=== PATIENT | male | born 1930 | race Caucasian/White ===

== ENCOUNTER → 2016-10-26 | Outpatient (CLI) | payer BC ==
[~2016-10-26] MED LIST: ALPH1CAP PO; ASPEC81 PO; B-COTAB18 PO; CHOL100010 PO; CLTP PO; CYAN10005 PO; GLC5 PO; GLC500 PO; IBUP-1459 PO; OMEG10007 PO; SIMV20TA2 PO; TPRSR/25 PO
[2016-10-26 12:24] LABS: BASO % 0.5 %; BASO ABS # 0.03 K/uL (0-0.2); COMPLETE YES; EOS % 6.4 %; HEMATOCRIT 38.4 % (42-52); IG% 0.5 %; LYMPH % 37.6 %; LYMPH ABS # 2.28 K/uL (1.2-3.4); MEAN CELL VOLUME 89.1 fL (80-100); MEAN CORPUSCULAR HEMOGLOBIN 29.9 pg (25-34); MEAN CORPUSCULAR HGB CONC 33.6 g/dl (32-36); MEAN PLATELET VOLUME 11.6 fL (7.4-10.4); MONO % 8.1 %; NEUT % 46.9 %; PLATELET COUNT 168 K/uL (130-400); RED BLOOD COUNT 4.31 M/uL (4.7-6.1); WHITE BLOOD COUNT 6.06 K/uL (4.8-10.8)
[2016-10-26 12:46] LABS: ALB/GLOB RATIO 0.8 (0.9-2); ALKALINE PHOSPHATASE 77 U/L (45-117); ALT/SGPT 22 U/L (12-78); AST/SGOT 12 U/L (15-37); BLOOD UREA NITROGEN 22 mg/dl (7-18); BUN/CREATININE RATIO 14.4 (10-20); CALCIUM 9.2 mg/dl (8.5-10.1); CARBON DIOXIDE 29 mmol/L (21-32); CHLORIDE 107 mmol/L (98-107); GLUCOSE 107 mg/dl (70-99); POTASSIUM 4.2 mmol/L (3.5-5.1); SODIUM 141 mmol/L (136-145); TRIGLYCERIDES 274 mg/dl (0-150)
[2016-10-26 12:55] LABS: ESTIMATED AVERAGE GLUCOSE 174 mg/dl; HA1C FLAG Normal (Normal)
[2016-10-26 15:22] LABS: RATIO 126.7 mcg/mg (0-30.0)
== END | disposition home or self-care (01) ==
LOC: C.LAB1850 09:44
PROVIDERS: ATTEND Internal Medicine
DX: N18.3 Chronic kidney disease, stage 3 (moderate) (principal); E11.22 Type 2 diabetes mellitus with diabetic chronic kidney disease; E11.49 Type 2 diabetes mellitus with other diabetic neurological complication; D64.9 Anemia, unspecified; E55.9 Vitamin D deficiency, unspecified

== ENCOUNTER → 2016-10-30 | Outpatient (CLI) | payer BC ==
--- NOTE | 2016-11-07 07:15 | CODING QUERY MEDICAL NECESSITY ---
CQSUPPORTING DIAGNOSIS NEEDED A supporting diagnosis is required for the test/procedure performed on this patient in order for us to be reimbursed by the patient's insurance. Please provide a supporting diagnosis for the following test/procedure listed below next to the test name along with your signature. *If there is no additional diagnosis for this patient that would support the following test/procedure please document that below next to the test/procedure. Test(s)/Procedure(s) that require a supporting diagnosis: DOS 10/30/16 VITAMIN B12 TEST Provider Signature: Date: Thank you Margy Charles [facility] Information Management Once completed, please kindly fax back to [phone] For questions please call [phone]
== END | disposition home or self-care (01) ==
LOC: C.LAB1850 12:08
PROVIDERS: ATTEND Internal Medicine
DX: E11.9 Type 2 diabetes mellitus without complications (principal); N18.3 Chronic kidney disease, stage 3 (moderate); R74.8 Abnormal levels of other serum enzymes

== ENCOUNTER → 2016-12-24 | Outpatient (CLI) | payer BC ==
--- NOTE | 2016-12-24 14:52 | DIAGNOSTIC IMAGING REPORT ---
MRI OF THE BRAIN WITHOUT IV CONTRAST CLINICAL HISTORY: Cognitive impairment. COMPARISON STUDY: CT of the brain dated 06/06/2014. TECHNIQUE: MRI of the brain was performed utilizing various T1 and T2-weighted sequences in the axial, sagittal, and coronal planes. IV contrast was not administered for this examination. FINDINGS: Brain parenchyma: There are age-related involutional changes noting mild patchy subcortical and periventricular microangiopathic disease. 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 There is no hemorrhage or mass effect. There is no restricted diffusion to suggest acute ischemia. Grimm-white matter differentiation is preserved. No extra-axial fluid collection is seen. The cerebellar tonsils are normal in configuration. Ventricles, sulci, and cisterns: Prominent secondary to involutional change. Pituitary and sella: Unremarkable. Intracranial vasculature: Normal flow voids are maintained at the skull base. Orbits: The bony orbits are grossly intact. Orbital contents are normal in appearance noting bilateral ocular lens implants. Sinuses and mastoids: Trace mucosal thickening is seen within the maxillary antra. The remaining paranasal sinuses are clear. There is a right mastoid effusion. Calvarium: Unremarkable. Cervical cord: Partially visualized cervical spinal cord is normal in morphology and signal intensity. IMPRESSION: 1. 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 There is no acute intracranial abnormality. 2. Right mastoid effusion. Electronically signed by: Stefano Feng M.D. 12/24/2016 2:51 PM Dictated Date/Time: 12/24/2016 2:48 PM
== END | disposition home or self-care (01) ==
LOC: C.MRIBC 13:58
PROVIDERS: ATTEND Psychiatry & Neurology Neurology
DX: G31.84 Mild cognitive impairment of uncertain or unknown etiology (principal)

== ENCOUNTER → 2017-01-24 | Outpatient (CLI) | payer BC ==
[2017-01-24 10:05] LABS: BLOOD UREA NITROGEN 25 mg/dl (7-18); BUN/CREATININE RATIO 13.9 (10-20); CALCIUM 9.5 mg/dl (8.5-10.1); CARBON DIOXIDE 28 mmol/L (21-32); CHLORIDE 106 mmol/L (98-107); GLUCOSE 77 mg/dl (70-99); POTASSIUM 4.1 mmol/L (3.5-5.1); SODIUM 141 mmol/L (136-145)
[2017-01-24 10:31] LABS: ESTIMATED AVERAGE GLUCOSE 180 mg/dl; HA1C FLAG Normal (Normal)
== END | disposition home or self-care (01) ==
LOC: C.LAB1850 08:32
PROVIDERS: ATTEND Internal Medicine
DX: E11.49 Type 2 diabetes mellitus with other diabetic neurological complication (principal)

== ENCOUNTER → 2017-02-05 | Outpatient (CLI) | payer BC ==
--- NOTE | 2017-02-05 13:16 | DIAGNOSTIC IMAGING REPORT ---
(RENAL)RETROPERITONEA COMP HISTORY: Nephrocalcinosis N20.0 Nephrolithiasis COMPARISON: None. FINDINGS: Right kidney: No hydronephrosis. Maximum dimension 10.3 cm per 2.6 cm cyst. 7 mm nonobstructing mid pole calcification. Left kidney: No hydronephrosis. Maximum linear dimension 11.7 cm. 2 cysts measuring 2 and 3 cm respectively. No calcifications. Bladder: No bladder wall thickening. The bilateral ureteral jets were identified. IMPRESSION: Small renal cysts bilaterally. 7 mm nonobstructing right renal calcification. No evidence for hydronephrosis. The above report was generated using voice recognition software. It may contain grammatical, syntax or spelling errors. Electronically signed by: Sanjiv Montana M.D. 02/05/2017 1:15 PM Dictated Date/Time: 02/05/2017 1:13 PM
[2017-02-05 14:46] LABS: BASO % 0.8 %; BASO ABS # 0.04 K/uL (0-0.2); COMPLETE YES; EOS % 4.5 %; HEMATOCRIT 39.5 % (42-52); IG% 0.4 %; LYMPH % 31.4 %; LYMPH ABS # 1.62 K/uL (1.2-3.4); MEAN CELL VOLUME 89.8 fL (80-100); MEAN CORPUSCULAR HEMOGLOBIN 30.2 pg (25-34); MEAN CORPUSCULAR HGB CONC 33.7 g/dl (32-36); MONO % 7.8 %; NEUT % 55.1 %; PLATELET COUNT 171 K/uL (130-400); WHITE BLOOD COUNT 5.16 K/uL (4.8-10.8)
[2017-02-05 14:53] LABS: URINE APPEARANCE CLEAR (CLEAR); URINE BILIRUBIN NEG (NEG); URINE COLOR YELLOW; URINE NITRITE NEG (NEG); UROBILINOGEN NEG (NEG)
[2017-02-05 14:56] LABS: MANUAL MICROSCOPIC REQUIRED? NO; REVIEW REQ? NO
[2017-02-05 15:05] LABS: ALKALINE PHOSPHATASE 73 U/L (45-117); ALT/SGPT 23 U/L (12-78); AST/SGOT 15 U/L (15-37); BLOOD UREA NITROGEN 21 mg/dl (7-18); BUN/CREATININE RATIO 13.2 (10-20); CALCIUM 9.2 mg/dl (8.5-10.1); CARBON DIOXIDE 27 mmol/L (21-32); CHLORIDE 107 mmol/L (98-107); GLUCOSE 191 mg/dl (70-99); POTASSIUM 4.4 mmol/L (3.5-5.1); SODIUM 141 mmol/L (136-145); URIC ACID 6.9 mg/dl (2.6-7.2)
[2017-02-05 15:06] LABS: ALB/GLOB RATIO 0.8 (0.9-2)
[2017-02-05 15:29] LABS: URINE PROTIEN/CREAT RATIO 0.3 (0-0.2); URINE TOTAL PROTEIN 40.5 mg/dl (0-11.9)
== END | disposition home or self-care (01) ==
LOC: C.ULTR 12:03
PROVIDERS: ATTEND Internal Medicine Nephrology
DX: N20.0 Calculus of kidney (principal); N18.3 Chronic kidney disease, stage 3 (moderate); N28.1 Cyst of kidney, acquired

== ENCOUNTER → 2017-04-01 | Outpatient (CLI) | payer BC ==
[2017-04-01 17:56] LABS: URINE APPEARANCE CLEAR (CLEAR); URINE BILIRUBIN NEG (NEG); URINE COLOR YELLOW; URINE NITRITE NEG (NEG); URINE PH 5.5 (4.5-7.5); URINE SPECIFIC GRAVITY 1.014 (1.000-1.030); UROBILINOGEN NEG (NEG); ZZUR CULT IF INDIC CLEAN CATCH NO
[2017-04-01 17:58] LABS: MANUAL MICROSCOPIC REQUIRED? NO; REVIEW REQ? NO
[2017-04-01 18:17] LABS: URINE PROTIEN/CREAT RATIO 0.2 (0-0.2); URINE TOTAL PROTEIN 17.5 mg/dl (0-11.9)
[2017-04-01 18:18] LABS: BLOOD UREA NITROGEN 25 mg/dl (7-18); BUN/CREATININE RATIO 14.6 (10-20); CALCIUM 9.1 mg/dl (8.5-10.1); CARBON DIOXIDE 27 mmol/L (21-32); CHLORIDE 102 mmol/L (98-107); GLUCOSE 191 mg/dl (70-99); MAGNESIUM 2.2 mg/dl (1.8-2.4); PHOSPHORUS 3.2 mg/dl (2.5-4.9); POTASSIUM 4.5 mmol/L (3.5-5.1); SODIUM 135 mmol/L (136-145)
[2017-04-03 16:17] LABS: ALBUMIN 4.2 G/DL (3.8-4.8); GAMMA GLOBULIN 1.1 G/DL (0.8-1.7); TOTAL PROTEIN 7.8 G/DL (6.2-8.3)
== END | disposition home or self-care (01) ==
LOC: C.LAB1850 17:15
PROVIDERS: ATTEND Internal Medicine Nephrology
DX: N20.0 Calculus of kidney (principal); M85.80 Other specified disorders of bone density and structure, unspecified site

== ENCOUNTER → 2017-05-01 | Outpatient (CLI) | payer BC ==
[2017-05-01 12:10] LABS: BASO % 0.5 %; BASO ABS # 0.03 K/uL (0-0.2); COMPLETE YES; HEMATOCRIT 36.9 % (42-52); IG% 0.4 %; LYMPH ABS # 2.04 K/uL (1.2-3.4); MEAN CORPUSCULAR HEMOGLOBIN 30.2 pg (25-34); MEAN CORPUSCULAR HGB CONC 33.6 g/dl (32-36); MEAN PLATELET VOLUME 11.2 fL (7.4-10.4); MONO % 11.3 %; NEUT % 44.8 %; PLATELET COUNT 167 K/uL (130-400); WHITE BLOOD COUNT 5.51 K/uL (4.8-10.8)
[2017-05-01 12:35] LABS: ALT/SGPT 18 U/L (12-78); BLOOD UREA NITROGEN 25 mg/dl (7-18); BUN/CREATININE RATIO 15.7 (10-20); CALCIUM 9.1 mg/dl (8.5-10.1); CARBON DIOXIDE 23 mmol/L (21-32); CHLORIDE 107 mmol/L (98-107); GLUCOSE 121 mg/dl (70-99); POTASSIUM 4.2 mmol/L (3.5-5.1); SODIUM 138 mmol/L (136-145)
[2017-05-01 12:38] LABS: ALB/GLOB RATIO 0.8 (0.9-2); ALKALINE PHOSPHATASE 78 U/L (45-117); AST/SGOT 16 U/L (15-37); CHOLESTEROL 137 mg/dl (0-200); CHOLESTEROL/HDL RATIO 4.3; HDL CHOLESTEROL 32 mg/dl; LDL CHOLESTEROL CALCULATED 30 mg/dl; TRIGLYCERIDES 374 mg/dl (0-150); VERY LOW DENSITY LIPOPROT CALC 75 mg/dl
[2017-05-01 12:39] LABS: ESTIMATED AVERAGE GLUCOSE 157 mg/dl; HA1C FLAG Normal (Normal)
== END | disposition home or self-care (01) ==
LOC: C.LAB1850 10:21
PROVIDERS: ATTEND Internal Medicine
DX: E78.01 Familial hypercholesterolemia (principal); I10 Essential (primary) hypertension; E11.9 Type 2 diabetes mellitus without complications; E55.9 Vitamin D deficiency, unspecified; R74.8 Abnormal levels of other serum enzymes

== ENCOUNTER → 2017-06-29 | Outpatient (CLI) | payer BC ==
[2017-06-29 09:25] LABS: BLOOD UREA NITROGEN 26 mg/dl (7-18); BUN/CREATININE RATIO 14.8 (10-20); CALCIUM 9.1 mg/dl (8.5-10.1); CARBON DIOXIDE 29 mmol/L (21-32); CHLORIDE 104 mmol/L (98-107); CREATININE 1.76 mg/dl (0.60-1.40); GLUCOSE 64 mg/dl (70-99); MAGNESIUM 2.2 mg/dl (1.8-2.4); POTASSIUM 3.7 mmol/L (3.5-5.1); SODIUM 138 mmol/L (136-145)
[2017-06-29 09:26] LABS: PHOSPHORUS 3.2 mg/dl (2.5-4.9)
== END | disposition home or self-care (01) ==
LOC: C.LAB 08:23
PROVIDERS: ATTEND Internal Medicine Nephrology
DX: N18.3 Chronic kidney disease, stage 3 (moderate) (principal)

== ENCOUNTER → 2017-12-05 | Outpatient (CLI) | payer BC ==
[2017-12-05 10:25] LABS: BASO % 0.5 %; BASO ABS # 0.03 K/uL (0-0.2); EOS % 5.8 %; EOS ABS # 0.35 K/uL (0-0.5); HEMATOCRIT 38.3 % (42-52); IG# 0.02 K/uL (0.00-0.02); LYMPH % 34.2 %; LYMPH ABS # 2.07 K/uL (1.2-3.4); MEAN CELL VOLUME 88.9 fL (80-100); MEAN CORPUSCULAR HEMOGLOBIN 30.2 pg (25-34); MEAN CORPUSCULAR HGB CONC 33.9 g/dl (32-36); MEAN PLATELET VOLUME 10.5 fL (7.4-10.4); MONO % 8.6 %; MONO ABS # 0.52 K/uL (0.11-0.59); NEUT % 50.6 %; NEUT ABS # 3.07 K/uL (1.4-6.5); PLATELET COUNT 183 K/uL (130-400); RED CELL DISTRIBUTION WIDTH CV 13.3 % (11.5-14.5); WHITE BLOOD COUNT 6.06 K/uL (4.8-10.8)
[2017-12-05 10:35] LABS: ALBUMIN 3.4 gm/dl (3.4-5.0); ALT/SGPT 19 U/L (12-78); AST/SGOT 16 U/L (15-37); BLOOD UREA NITROGEN 26 mg/dl (7-18); CALCIUM 8.7 mg/dl (8.5-10.1); CARBON DIOXIDE 25 mmol/L (21-32); CREATININE 1.56 mg/dl (0.60-1.40); GLUCOSE 155 mg/dl (70-99); POTASSIUM 4.2 mmol/L (3.5-5.1); SODIUM 138 mmol/L (136-145)
[2017-12-05 11:10] LABS: HEMOGLOBIN A1C 7.8 % (4.5-5.6)
== END | disposition home or self-care (01) ==
LOC: C.LAB1850 09:20
PROVIDERS: ATTEND Internal Medicine Nephrology
DX: N18.3 Chronic kidney disease, stage 3 (moderate) (principal); E78.01 Familial hypercholesterolemia; E11.49 Type 2 diabetes mellitus with other diabetic neurological complication

== ENCOUNTER 2018-09-30 16:03 | Inpatient (IN) ==
[2018-09-30] MEDS ORDERED: SODIUM CHLORIDE 0.9% 500 ML IV SCH (16:15)
--- NOTE | 2018-09-30 16:32 | XRay Report ---
XR chest 1V portable HISTORY: weakness COMPARISON: None. FINDINGS: The heart is mildly enlarged. Calcified left hilar lymph nodes. A few linear densities the left lung base consistent with subsegmental atelectasis or scarring. The lungs are otherwise clear. N o pleural effusions. No pneumothorax. IMPRESSION: Mild cardiomegaly. Otherwise, no acute process within the chest. Electronically signed by: Timoteo Burton M.D. 09/30/2018 4:31 PM
[2018-09-30 16:52] LABS: Basophils # (auto) 0.02 K/uL (0-0.2); Basophils % (auto) 0.5 %; Eosinophils # (auto) 0.06 K/uL (0-0.5); Eosinophils % (auto) 1.4 %; Hematocrit (blood only) 37.4 % (42-52); Hemoglobin 12.7 g/dL (14.0-18.0); Immature Granulocytes # (auto) 0.01 K/uL (0.00-0.02); Immature Granulocytes % (auto) 0.2 %; Lymphocytes # (auto) 0.81 K/uL (1.2-3.4); Lymphocytes % (auto) 19.3 %; Mean Corpuscular Volume 88.8 fL (80-100); Mean Platelet Volume 11.2 fL (7.4-10.4); Monocytes # (auto) 0.58 K/uL (0.11-0.59); Monocytes % (auto) 13.8 %; Neutrophils # (auto) 2.71 K/uL (1.4-6.5); Neutrophils % (auto) 64.8 %; Platelet Count 146 K/uL (130-400); RDW Coefficient of Variation 13.2 % (11.5-14.5); Red Blood Count 4.21 M/uL (4.7-6.1); White Blood Count 4.19 K/uL (4.8-10.8)
[2018-09-30 16:54] LABS: Oxygen Saturation VBG 81.4 %; pH VBG 7.38 (7.36-7.41)
[2018-09-30 17:04] LABS: INR 1.2 (0.9-1.1); Partial Thromboplastin Ratio 1.2; Partial Thromboplastin Time 33.5 Seconds (21.0-31.0); Prothrombin Time 11.8 Seconds (9.0-12.0)
[2018-09-30 17:10] LABS: Alanine Aminotransferase 30 U/L (12-78); Albumin Level 3.3 gm/dl (3.4-5.0); Aspartate Aminotransferase 41 U/L (15-37); BUN Creatinine Ratio 22.7 (10-20); Blood Urea Nitrogen 39 mg/dl (7-18); Calcium 8.6 mg/dl (8.5-10.1); Carbon Dioxide 25 mmol/L (21-32); Chloride 102 mmol/L (98-107); Creatinine Clr Calc Pharmacy 34.3 ml/min; Est GFR (African American) 40.3; Est GFR (Non-African American) 34.7; Glucose 212 mg/dl (70-99); Potassium 3.8 mmol/L (3.5-5.1); Sodium 135 mmol/L (136-145)
[2018-09-30 17:20] LABS: Albumin Globulin Ratio 0.7 (0.9-2); Alkaline Phosphatase 70 U/L (45-117); Bilirubin,Total 0.7 mg/dl (0.2-1); Globulin 4.9 gm/dl (2.5-4.0); Total Protein 8.2 gm/dl (6.4-8.2); Troponin I < 0.015 ng/ml (0-0.045)
--- NOTE | 2018-09-30 17:27 | CT Scan Report ---
HEAD CT NONCONTRAST CT DOSE: 537.48 mGy.cm HISTORY: confusion TECHNIQUE: Multiaxial CT images of the head were performed without the use of intravenous contrast. A utomated exposure control was utilized for this study. A dose lowering technique was utilized adheri ng to the principles of ALARA. Comparison: Head CT 06/06/2014. Findings: Moderate mucosal thickening within the maxillary sinuses and ethmoid air cells. The calvari um and skull base are intact. There is no mass, hematoma, midline shift, acute infarct. White matter hypodensity is nonspecific but suggestive of microvascular ischemic change. The ventricles and sulci demonstrate mild age-related involutional changes. 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 Impression: No significant change compared to the prior study. No acute intracranial abnormality. Electronically signed by: Timoteo Burton M.D. 09/30/2018 5:26 PM
[2018-09-30 17:44] LABS: Appearance Urine Cloudy (Clear); Bacteria Urine Automated Negative (Negative); Bilirubin Urine Negative (Negative); Blood Urine 2+ (Negative); Color Urine Yellow; Epithelial Cell Urine Auto >30 /lpf (0-5); Glucose Urine UA 1+ (Negative); Ketones Urine 1+ (Negative); Leukocyte Esterase Urine Trace (Negative); Nitrite Urine Negative (Negative); Protein Urine 3+ (Negative); RBC Urine Automated 0-4 /hpf (0-4); Specific Gravity Urine 1.024 (1.000-1.030); Urobilinogen Urine Negative (Negative)
[2018-09-30] MEDS ORDERED: SODIUM CHLORIDE 0.9% 1000ML 500 ML IV ONE (18:26)
--- NOTE | 2018-09-30 19:38 | Emergency Department Note ---
Entered by Negrita Vera acting as a scribe for History of Present Illness General Chief complaint: Fall Stated complaint: CONFUSION Time Seen by Provider: 09/30/18 16:08 Source: patient, EMS and RN notes reviewed Mode of arrival: EMS Limitations: altered mental status History of Present Illness Provider complaint: confusion Onset (ago): unknown (earlier today) Location: head Pain Consistency: + other (episode) Quality: + other (confusion) Associated symptoms: + denies other symptoms (pain) Treatments prior to arrival: other (400 cc saline) The patient is an 88 year old male who presents to the Emergency Room via EMS following an episode of confusion that occurred earlier today. Per EMS, the patient was found in his underwear in the bathtub by his family. EMS notes that the family is unsure how long he was there and state that he was confused and unable to answer questions correctly. Per RN, the patient has not been diagnosed with dementia but the family reports that the patient has some good days and some bad days. The patient denies any pain anywhere. EMS notes show that the patients blood sugar was 238 and that he was given 400 cc of saline en route. The family reports that they last spoke with the patient last night and that he was coherent but had a little bit of a cold. They state that he was supposed to take a bath last evening, so they are unsure how long he was in the tub. Home Medications Home Medications Medication Instructions Recorded Confirmed Type alpha lipoic acid 300 mg PO DAILY 09/30/18 09/30/18 History aspirin [Aspir-81] 81 mg PO DAILY 09/30/18 09/30/18 History calcium carbonate-vitamin D3 1 cap PO DAILY 09/30/18 09/30/18 History [Calcium 600 + D(3)] cholecalciferol (vitamin D3) 1,000 unit PO DAILY 09/30/18 09/30/18 History [Vitamin D3] glimepiride 4 mg PO BID 09/30/18 09/30/18 History metoprolol succinate 25 mg PO DAILY 09/30/18 09/30/18 History omega 6-rmx-vuy-fish oil [Fish Oil] 0 mg PO BID 09/30/18 09/30/18 History simvastatin 20 mg PO DAILY 09/30/18 09/30/18 History thiamine HCl (vitamin B1) [Vitamin 100 mg PO DAILY 09/30/18 09/30/18 History B-1] vitamin B complex 100 2-herbs 1 tab PO DAILY 09/30/18 09/30/18 History Allergies Allergy/AdvReac Type Severity Reaction Status Date / Time REDD Inhibitors Allergy Severe swelling Verified 09/30/18 19:48 of face, lips, etc. pneumococcal vaccine Allergy Mild ARM SWELLED Verified 09/30/18 19:48 losartan Allergy Unknown unknown Verified 09/30/18 19:48 Past Med/Surg History Medical History Diabetes (Chronic) Heart disease (Chronic) Family History Father Heart attack Other Family history non-contributory Social History Preferred Language: Guamanian Communication Ability: Effective Drug And Alcohol Treatment Specialist Required: No Beliefs That Will Affect Care: None Current Living Situation: Alone Other Information That Helps Us Care for You: No Feels Safe at Home: Yes Safety Concerns: Feels Safe At This Time Smoking Status: Never smoker Hx Alcohol Use: No Hx Substance Use: No Review of Systems Other (HPI and ROS are both limited secondary to confusion. ) Physical Exam Vital Signs Vital Signs - 24 hr 09/30/18 16:16 09/30/18 16:22 09/30/18 16:30 Temperature 36.5 C Temperature Source Oral Sepsis Recent Fever Within 48 Hours No Sepsis Action Taken by Nursing No Action Required Pulse Rate 113 H 111 H 107 H Pulse Rate [Apical] Pulse Rate from SpO2 Sensor 110 H 107 H Pulse Rhythm [Apical] Pulse Strength [Apical] Respiratory Rate 20 20 22 Respiratory Effort / Characteristics Non-Labored Respiratory Depth Normal Respiratory Pattern Blood Pressure 183/94 H Blood Pressure [Right Arm] Blood Pressure Mean 123 Blood Pressure Mean [Right Arm] Blood Pressure Position [Right Arm] Pulse Oximetry 95 92 97 Oxygen Delivery Method Room Air 09/30/18 16:40 09/30/18 16:48 09/30/18 16:50 Temperature Temperature Source Sepsis Recent Fever Within 48 Hours Sepsis Action Taken by Nursing Pulse Rate 106 H 109 H Pulse Rate [Apical] Pulse Rate from SpO2 Sensor 105 H 106 H Pulse Rhythm [Apical] Pulse Strength [Apical] Respiratory Rate 19 21 Respiratory Effort / Characteristics Respiratory Depth Respiratory Pattern Blood Pressure Blood Pressure [Right Arm] Blood Pressure Mean Blood Pressure Mean [Right Arm] Blood Pressure Position [Right Arm] Pulse Oximetry 95 95 94 Oxygen Delivery Method Room Air 09/30/18 17:00 09/30/18 17:24 09/30/18 17:26 Temperature Temperature Source Sepsis Recent Fever Within 48 Hours Sepsis Action Taken by Nursing Pulse Rate 105 H 117 H 110 H Pulse Rate [Apical] Pulse Rate from SpO2 Sensor 107 H 110 H Pulse Rhythm [Apical] Pulse Strength [Apical] Respiratory Rate 25 H 24 Respiratory Effort / Characteristics Respiratory Depth Respiratory Pattern Blood Pressure 167/100 H Blood Pressure [Right Arm] Blood Pressure Mean 122 Blood Pressure Mean [Right Arm] Blood Pressure Position [Right Arm] Pulse Oximetry 96 94 Oxygen Delivery Method 09/30/18 17:30 09/30/18 17:40 09/30/18 17:50 Temperature Temperature Source Sepsis Recent Fever Within 48 Hours Sepsis Action Taken by Nursing Pulse Rate 103 H 104 H 103 H Pulse Rate [Apical] Pulse Rate from SpO2 Sensor 102 H 105 H 104 H Pulse Rhythm [Apical] Pulse Strength [Apical] Respiratory Rate 23 18 26 H Respiratory Effort / Characteristics Respiratory Depth Respiratory Pattern Blood Pressure 151/84 H Blood Pressure [Right Arm] Blood Pressure Mean 106 Blood Pressure Mean [Right Arm] Blood Pressure Position [Right Arm] Pulse Oximetry 94 94 94 Oxygen Delivery Method 09/30/18 18:00 09/30/18 18:01 09/30/18 18:10 Temperature Temperature Source Sepsis Recent Fever Within 48 Hours Sepsis Action Taken by Nursing Pulse Rate 106 H 105 H 104 H Pulse Rate [Apical] 105 H Pulse Rate from SpO2 Sensor 103 H 104 H 102 H Pulse Rhythm [Apical] Pulse Strength [Apical] Respiratory Rate 29 H 29 H 25 H Respiratory Effort / Characteristics Non-Labored Respiratory Depth Normal Respiratory Pattern Blood Pressure 166/77 H Blood Pressure [Right Arm] 151/84 H Blood Pressure Mean 106 Blood Pressure Mean [Right Arm] 106 Blood Pressure Position [Right Arm] Pulse Oximetry 92 93 93 Oxygen Delivery Method Room Air 09/30/18 18:20 09/30/18 18:30 09/30/18 18:40 Temperature Temperature Source Sepsis Recent Fever Within 48 Hours Sepsis Action Taken by Nursing Pulse Rate 101 H 103 H 101 H Pulse Rate [Apical] Pulse Rate from SpO2 Sensor 103 H 104 H 101 H Pulse Rhythm [Apical] Pulse Strength [Apical] Respiratory Rate 22 24 21 Respiratory Effort / Characteristics Respiratory Depth Respiratory Pattern Blood Pressure 156/79 H Blood Pressure [Right Arm] Blood Pressure Mean 104 Blood Pressure Mean [Right Arm] Blood Pressure Position [Right Arm] Pulse Oximetry 95 98 98 Oxygen Delivery Method 09/30/18 18:50 09/30/18 19:00 09/30/18 19:10 Temperature Temperature Source Sepsis Recent Fever Within 48 Hours Sepsis Action Taken by Nursing Pulse Rate 101 H 110 H 104 H Pulse Rate [Apical] Pulse Rate from SpO2 Sensor 102 H Pulse Rhythm [Apical] Pulse Strength [Apical] Respiratory Rate 27 H 26 H 21 Respiratory Effort / Characteristics Respiratory Depth Respiratory Pattern Blood Pressure 161/83 H Blood Pressure [Right Arm] Blood Pressure Mean 109 Blood Pressure Mean [Right Arm] Blood Pressure Position [Right Arm] Pulse Oximetry 97 Oxygen Delivery Method 09/30/18 19:20 09/30/18 19:30 09/30/18 19:40 Temperature Temperature Source Sepsis Recent Fever Within 48 Hours Sepsis Action Taken by Nursing Pulse Rate 108 H 109 H 110 H Pulse Rate [Apical] Pulse Rate from SpO2 Sensor Pulse Rhythm [Apical] Pulse Strength [Apical] Respiratory Rate 24 27 H 21 Respiratory Effort / Characteristics Respiratory Depth Respiratory Pattern Blood Pressure 156/86 H Blood Pressure [Right Arm] Blood Pressure Mean 109 Blood Pressure Mean [Right Arm] Blood Pressure Position [Right Arm] Pulse Oximetry Oxygen Delivery Method 09/30/18 19:50 09/30/18 20:00 09/30/18 20:10 Temperature Temperature Source Sepsis Recent Fever Within 48 Hours Sepsis Action Taken by Nursing Pulse Rate 112 H 107 H 108 H Pulse Rate [Apical] Pulse Rate from SpO2 Sensor 108 H Pulse Rhythm [Apical] Pulse Strength [Apical] Respiratory Rate 22 24 23 Respiratory Effort / Characteristics Respiratory Depth Respiratory Pattern Blood Pressure 130/77 Blood Pressure [Right Arm] Blood Pressure Mean 94 Blood Pressure Mean [Right Arm] Blood Pressure Position [Right Arm] Pulse Oximetry 92 Oxygen Delivery Method 09/30/18 20:20 09/30/18 20:30 09/30/18 20:40 Temperature Temperature Source Sepsis Recent Fever Within 48 Hours Sepsis Action Taken by Nursing Pulse Rate 103 H 99 H 107 H Pulse Rate [Apical] Pulse Rate from SpO2 Sensor 104 H 100 H 106 H Pulse Rhythm [Apical] Pulse Strength [Apical] Respiratory Rate 21 26 H 14 Respiratory Effort / Characteristics Respiratory Depth Respiratory Pattern Blood Pressure 132/72 Blood Pressure [Right Arm] Blood Pressure Mean 92 Blood Pressure Mean [Right Arm] Blood Pressure Position [Right Arm] Pulse Oximetry 96 96 91 Oxygen Delivery Method 09/30/18 22:12 09/30/18 22:13 09/30/18 22:26 Temperature 36.8 C Temperature Source Oral Sepsis Recent Fever Within 48 Hours Sepsis Action Taken by Nursing Pulse Rate 104 H Pulse Rate [Apical] 106 H Pulse Rate from SpO2 Sensor Pulse Rhythm [Apical] Regular Pulse Strength [Apical] Normal Respiratory Rate 18 Respiratory Effort / Characteristics Non-Labored Spontaneous Non-Labored Spontaneous Respiratory Depth Normal Normal Respiratory Pattern Regular Regular Blood Pressure Blood Pressure [Right Arm] 157/81 H Blood Pressure Mean Blood Pressure Mean [Right Arm] 106 Blood Pressure Position [Right Arm] Sitting Pulse Oximetry 94 Oxygen Delivery Method Room Air Room Air 09/30/18 23:05 Temperature 36.9 C Temperature Source Oral Sepsis Recent Fever Within 48 Hours Sepsis Action Taken by Nursing Pulse Rate Pulse Rate [Apical] 109 H Pulse Rate from SpO2 Sensor Pulse Rhythm [Apical] Pulse Strength [Apical] Respiratory Rate 18 Respiratory Effort / Characteristics Respiratory Depth Respiratory Pattern Blood Pressure Blood Pressure [Right Arm] 171/82 H Blood Pressure Mean Blood Pressure Mean [Right Arm] 111 Blood Pressure Position [Right Arm] Pulse Oximetry 92 Oxygen Delivery Method Room Air GENERAL: Patient is in no acute distress. HEENT: No acute trauma, normocephalic atraumatic, mucous membranes moist, no nasal congestion, no scleral icterus. NECK: No stridor, no adenopathy, no meningismus, trachea is midline. LUNGS: Clear to auscultation bilaterally, no wheeze, no rhonchi, breath sounds equal. HEART: Tachycardic with a regular rhythm, no murmurs. ABDOMEN: Soft, nontender, bowel sounds positive, no hernias, no peritonitis. EXTREMITIES: No edema, subtle abrasions to both posterior elbows, full ROM of all joints without pain or difficulty. NEUROLOGIC: Awake and alert. Confusion noted. Does not remember this morning, does not know this hospital. Moves all extremities equally. No speech slur. SKIN: No rash, no jaundice, no diaphoresis. Course 161: Past medical records reviewed. The patient was evaluated in room C10, and a complete history and physical examination were performed. 1841: I reviewed the patient's case with Dr. Mart Chamorro Hospitalist. S he will evaluate the patient for further management. Administered Medications Fish Oil ([place]-3 (Purified Fish Oil)) 2 gm PO BID ALISA Stop: 10/30/18 20:59 Last Admin: 09/30/18 22:47 Dose: 2 gm Documented by: [id number] Heparin Sodium (Porcine) (Heparin Sodium (Porcine)) 5,000 units SQ Q8 ALISA Stop: 10/30/18 21:59 Last Admin: 10/01/18 00:12 Dose: 5,000 units Documented by: [id number] Cosigned by: [id number] Insulin Aspart (Novolog Flexpen) 0 units SC ACHS ALISA Stop: 10/30/18 21:54 Last Admin: 09/30/18 22:50 Dose: 2 units Documented by: [id number] Cosigned by: [id number] Discontinued Medications Sodium Chloride (Nss) 500 mls @ 999 mls/hr IV .Q31M ALISA Stop: 09/30/18 16:45 Last Infusion: 09/30/18 17:59 Dose: 0 mls/hr Documented by: [id number] Admin: 09/30/18 16:49 Dose: 999 mls/hr Documented by: [id number] Sodium Chloride (Nss 1000ml) 500 mls @ 999 mls/hr IV .Q31M ONE Stop: 09/30/18 18:56 Last Infusion: 09/30/18 19:04 Dose: 0 mls/hr Documented by: [id number] Admin: 09/30/18 18:37 Dose: 999 mls/hr Documented by: [id number] Menthol (Nice) Confirm Administered Dose 24 kelly BUCCAL .STK-MED ONE Stop: 09/30/18 22:43 Last Admin: 09/30/18 22:47 Dose: 24 kelly Documented by: [id number] Medical Decision Making Differential Diagnosis Differential Diagnosis includes: stroke, intracranial bleeding, infection, dehydration, electrolyte imbalance, anemia, renal or liver failure, UTI and dementia. Medical Records Attestation: I reviewed the patient's medical records. Home Medications Current Medication List: was personally reviewed by me Laboratory Data Attestation: I reviewed the patient's lab results. Result diagrams: 09/30/18 16:37 09/30/18 16:37 Lab Results 09/30/18 09/30/18 09/30/18 Range/Units 16:37 16:37 16:37 WBC 4.19 L (4.8-10.8) K/uL RBC 4.21 L (4.7-6.1) M/uL Hgb 12.7 L (14.0-18.0) g/dL Hct 37.4 L (42-52) % MCV 88.8 (80-100) fL MCH 30.2 (25-34) pg MCHC 34.0 (32-36) g/dL RDW Std Deviation 43.0 (36.4-46.3) fL RDW Coeff of April 13.2 (11.5-14.5) % Plt Count 146 (130-400) K/uL MPV 11.2 H (7.4-10.4) fL Immature Gran % (Auto) 0.2 % Neut % (Auto) 64.8 % Lymph % (Auto) 19.3 % [place] % (Auto) 13.8 % Eos % (Auto) 1.4 % Baso % (Auto) 0.5 % Immature Gran # (Auto) 0.01 (0.00-0.02) K/uL Neut # (Auto) 2.71 (1.4-6.5) K/uL Lymph # (Auto) 0.81 L (1.2-3.4) K/uL [place] # (Auto) 0.58 (0.11-0.59) K/uL Eos # (Auto) 0.06 (0-0.5) K/uL Baso # (Auto) 0.02 (0-0.2) K/uL PT 11.8 (9.0-12.0) Seconds INR 1.2 H (0.9-1.1) APTT 33.5 H (21.0-31.0) Seconds PTT Ratio 1.2 VBG pH (7.36-7.41) VBG pCO2 (38-50) mmHg VBG pO2 mmHg VBG HCO3 mmol/L VBG O2 Saturation % VBG Base Excess mEq/L Barometric Pressure mm/Hg Sodium 135 L (136-145) mmol/L Potassium 3.8 (3.5-5.1) mmol/L Chloride 102 (98-107) mmol/L Carbon Dioxide 25 (21-32) mmol/L Anion Gap 8.0 (3-11) BUN 39 H (7-18) mg/dl Creatinine 1.73 H (0.6-1.4) mg/dl Est Cr Clr Drug Dosing 34.3 ml/min Est GFR ( Amer) 40.3 Est GFR (Non-Af Amer) 34.7 BUN/Creatinine Ratio 22.7 H (10-20) Glucose 212 H (70-99) mg/dl POC Glucose (70-99) Lactate (0.4-2.0) mmol/L Calcium 8.6 (8.5-10.1) mg/dl Magnesium 2.0 (1.8-2.4) mg/dl Total Bilirubin 0.7 (0.2-1) mg/dl AST 41 H (15-37) U/L ALT 30 (12-78) U/L Alkaline Phosphatase 70 (45-117) U/L Ammonia (11-32) umol/L Troponin I < 0.015 (0-0.045) ng/ml Total Protein 8.2 (6.4-8.2) gm/dl Albumin 3.3 L (3.4-5.0) gm/dl Globulin 4.9 H (2.5-4.0) gm/dl Albumin/Globulin Ratio 0.7 L (0.9-2) TSH 1.100 (0.300-4.500) uIu/ml Urine Color Urine Appearance (Clear) Urine pH (4.5-7.5) Ur Specific [place] (1.000-1.030) Urine Protein (Negative) Urine Glucose (UA) (Negative) Urine Ketones (Negative) Urine Blood (Negative) Urine Nitrite (Negative) Urine Bilirubin (Negative) Urine Urobilinogen (Negative) Ur Leukocyte Esterase (Negative) Urine WBC (Auto) (0-5) /hpf Urine RBC (Auto) (0-4) /hpf U Hyaline Cast (Auto) (0-5) /lpf U Epithel Cells (Auto) (0-5) /lpf Urine Bacteria (Auto) (Negative) Ur Renal Epithelial Cell Granular Casts (0) /lpf Urine Yeast 09/30/18 09/30/18 09/30/18 Range/Units 16:37 16:37 16:37 WBC (4.8-10.8) K/uL RBC (4.7-6.1) M/uL Hgb (14.0-18.0) g/dL Hct (42-52) % MCV (80-100) fL MCH (25-34) pg MCHC (32-36) g/dL RDW Std Deviation (36.4-46.3) fL RDW Coeff of April (11.5-14.5) % Plt Count (130-400) K/uL MPV (7.4-10.4) fL Immature Gran % (Auto) % Neut % (Auto) % Lymph % (Auto) % [place] % (Auto) % Eos % (Auto) % Baso % (Auto) % Immature Gran # (Auto) (0.00-0.02) K/uL Neut # (Auto) (1.4-6.5) K/uL Lymph # (Auto) (1.2-3.4) K/uL [place] # (Auto) (0.11-0.59) K/uL Eos # (Auto) (0-0.5) K/uL Baso # (Auto) (0-0.2) K/uL PT (9.0-12.0) Seconds INR (0.9-1.1) APTT (21.0-31.0) Seconds PTT Ratio VBG pH 7.38 (7.36-7.41) VBG pCO2 42 (38-50) mmHg VBG pO2 68 mmHg VBG HCO3 24 mmol/L VBG O2 Saturation 81.4 % VBG Base Excess -1.0 mEq/L Barometric Pressure 737.7 mm/Hg Sodium (136-145) mmol/L Potassium (3.5-5.1) mmol/L Chloride (98-107) mmol/L Carbon Dioxide (21-32) mmol/L Anion Gap (3-11) BUN (7-18) mg/dl Creatinine (0.6-1.4) mg/dl Est Cr Clr Drug Dosing ml/min Est GFR ( Amer) Est GFR (Non-Af Amer) BUN/Creatinine Ratio (10-20) Glucose (70-99) mg/dl POC Glucose (70-99) Lactate 1.6 (0.4-2.0) mmol/L Calcium (8.5-10.1) mg/dl Magnesium (1.8-2.4) mg/dl Total Bilirubin (0.2-1) mg/dl AST (15-37) U/L ALT (12-78) U/L Alkaline Phosphatase (45-117) U/L Ammonia 12.0 (11-32) umol/L Troponin I (0-0.045) ng/ml Total Protein (6.4-8.2) gm/dl Albumin (3.4-5.0) gm/dl Globulin (2.5-4.0) gm/dl Albumin/Globulin Ratio (0.9-2) TSH (0.300-4.500) uIu/ml Urine Color Urine Appearance (Clear) Urine pH (4.5-7.5) Ur Specific [place] (1.000-1.030) Urine Protein (Negative) Urine Glucose (UA) (Negative) Urine Ketones (Negative) Urine Blood (Negative) Urine Nitrite (Negative) Urine Bilirubin (Negative) Urine Urobilinogen (Negative) Ur Leukocyte Esterase (Negative) Urine WBC (Auto) (0-5) /hpf Urine RBC (Auto) (0-4) /hpf U Hyaline Cast (Auto) (0-5) /lpf U Epithel Cells (Auto) (0-5) /lpf Urine Bacteria (Auto) (Negative) Ur Renal Epithelial Cell Granular Casts (0) /lpf Urine Yeast 09/30/18 09/30/18 Range/Units 17:27 22:18 WBC (4.8-10.8) K/uL RBC (4.7-6.1) M/uL Hgb (14.0-18.0) g/dL Hct (42-52) % MCV (80-100) fL MCH (25-34) pg MCHC (32-36) g/dL RDW Std Deviation (36.4-46.3) fL RDW Coeff of April (11.5-14.5) % Plt Count (130-400) K/uL MPV (7.4-10.4) fL Immature Gran % (Auto) % Neut % (Auto) % Lymph % (Auto) % [place] % (Auto) % Eos % (Auto) % Baso % (Auto) % Immature Gran # (Auto) (0.00-0.02) K/uL Neut # (Auto) (1.4-6.5) K/uL Lymph # (Auto) (1.2-3.4) K/uL [place] # (Auto) (0.11-0.59) K/uL Eos # (Auto) (0-0.5) K/uL Baso # (Auto) (0-0.2) K/uL PT (9.0-12.0) Seconds INR (0.9-1.1) APTT (21.0-31.0) Seconds PTT Ratio VBG pH (7.36-7.41) VBG pCO2 (38-50) mmHg VBG pO2 mmHg VBG HCO3 mmol/L VBG O2 Saturation % VBG Base Excess mEq/L Barometric Pressure mm/Hg Sodium (136-145) mmol/L Potassium (3.5-5.1) mmol/L Chloride (98-107) mmol/L Carbon Dioxide (21-32) mmol/L Anion Gap (3-11) BUN (7-18) mg/dl Creatinine (0.6-1.4) mg/dl Est Cr Clr Drug Dosing ml/min Est GFR ( Amer) Est GFR (Non-Af Amer) BUN/Creatinine Ratio (10-20) Glucose (70-99) mg/dl POC Glucose 196 H (70-99) Lactate (0.4-2.0) mmol/L Calcium (8.5-10.1) mg/dl Magnesium (1.8-2.4) mg/dl Total Bilirubin (0.2-1) mg/dl AST (15-37) U/L ALT (12-78) U/L Alkaline Phosphatase (45-117) U/L Ammonia (11-32) umol/L Troponin I (0-0.045) ng/ml Total Protein (6.4-8.2) gm/dl Albumin (3.4-5.0) gm/dl Globulin (2.5-4.0) gm/dl Albumin/Globulin Ratio (0.9-2) TSH (0.300-4.500) uIu/ml Urine Color Yellow Urine Appearance Cloudy H (Clear) Urine pH 5.0 (4.5-7.5) Ur Specific [place] 1.024 (1.000-1.030) Urine Protein 3+ H (Negative) Urine Glucose (UA) 1+ H (Negative) Urine Ketones 1+ H (Negative) Urine Blood 2+ H (Negative) Urine Nitrite Negative (Negative) Urine Bilirubin Negative (Negative) Urine Urobilinogen Negative (Negative) Ur Leukocyte Esterase Trace H (Negative) Urine WBC (Auto) 10-30 H (0-5) /hpf Urine RBC (Auto) 0-4 (0-4) /hpf U Hyaline Cast (Auto) 5-10 H (0-5) /lpf U Epithel Cells (Auto) >30 H (0-5) /lpf Urine Bacteria (Auto) Negative (Negative) Ur Renal Epithelial Cell Not Reportable Granular Casts 5-10 H (0) /lpf Urine Yeast Not Reportable Imaging Data Radiologist's Impression: Radiology results as stated below per my review and the radiologist's interpretation: XR chest 1V portable HISTORY: weakness COMPARISON: None. FINDINGS: The heart is mildly enlarged. Calcified left hilar lymph nodes. A few linear densities the left lung base consistent with subsegmental atelectasis or scarring. The lungs are otherwise clear. No pleural effusions. No pneumothorax. IMPRESSION: Mild cardiomegaly. Otherwise, no acute process within the chest. Electronically signed by: Timoteo Burton M.D. 09/30/2018 4:[address]AST CT DOSE: 537.48 mGy.cm HISTORY: confusion TECHNIQUE: Multiaxial CT images of the head were performed without the use of intravenous contrast. Automated exposure control was utilized for this study. A dose lowering technique was utilized adhering to the principles of ALARA. Comparison: Head CT 06/06/2014. Findings: Moderate mucosal thickening within the maxillary sinuses and ethmoid air cells. The calvarium and skull base are intact. There is no mass, hematoma, midline shift, acute infarct. White matter hypodensity is nonspecific but sug gestive of microvascular ischemic change. The ventricles and sulci demonstrate mild age-related involutional changes. 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 Impression: No significant change compared to the prior study. No acute intracranial abnormality. Electronically signed by: Timoteo Burton M.D. 09/30/2018 5:26 PM ECG Data Attestation: I personally reviewed and interpreted this ECG as follows: Indication: tachycardia Rate (beats per minute): 110 Rhythm: sinus tachycardia Findings: no PVC and no ST elevation Blood Pressure Blood Pressure Findings: Elevated blood pressure Blood Pressure Disposition: further management by hospitalist [facility] Narrative There is no leukocytosis. The patient is anemic but this is baseline looking back at previous testing. No concerning coagulopathy. VBG does not show acidosis or CO2 retention. Renal panel testing show some renal insufficiency which is baseline looking back at previous testing. Lactic acid level was not significantly elevated making severe sepsis less likely. There was no hepatitis. Ammonia level was not elevated. The patient appeared to be in a euthyroid state. EKG shows a sinus tachycardia, no acute ischemia. Cardiac enzyme testing x1 is not consistent with acute cardiac injury. Urinalysis shows some contamination and dehydration, no evidence for true infection. Chest film does not show pneumonia or CHF. Brain CT shows no acute bleed or mass-effect. On exam, the patient appeared dehydrated, he was slightly tachycardic. He was awake and interactive and moving all extremities. The patient received IV saline, he received a second IV saline bolus. The patient has been resting comfortably. His heart rate does seem improved. His family thinks his mentation is improving since the IV fluids. The patient deserves a hospital stay. Presents with confusion and weakness. He may have been in his bathtub all day. He does not know why he was in the tub and does not really recall this morning's events. According to his family, he has had a slight cough but otherwise has been himself, he was acting normally last evening. Further workup in the hospital is required. I spoke to the patient and case management. The on-call hospitalist was consulted. Impression & Plan Change in mental status, Dehydration, Tachycardia, Confusion Discharge Plan Visit Data *Final* Discharge Date/Time: 09/30/18 20:54 Chief Complaint: Fall Stated Complaint: CONFUSION ED Provider: Stefano Woods Discharge Problem: Change in mental status, Dehydration, Tachycardia, Confusion Patient Disposition: Admitted As Inpatient Discharge Instructions Interventions: ED Discharge Assessment Last Done: 09/30/18 20:54 Discharge Problem: Change in mental status Qualifiers: Altered mental status type: unspecified Qualified Code(s): R41.82 - Altered mental status, unspecified The talibe's documentation has been prepared under my direction and personally reviewed by me in its entirety. I confirm that the note above accurately refl ects all work, treatment, procedures, and medical decision making performed by me.
--- NOTE | 2018-09-30 20:19 | History & Physical Report ---
Date of Service September 30, 2018 Assessment & Plan (1) Change in mental status: Uncertain etiology, likely dehydration in the setting of possible viral syndrome Improving on IVF, no abx given in the ED UA with neg nitrites and tr leuk est, WBC WNL, and neg for urinary sx--will await cx and hold abx for now given pt is improving on IVF CXR neg for PNA CT head: neg for acute electrolyes WNL TSH WNL Stroke is unlikely, will hold on neuro c/s Son states they may need some help on d/c as pt lives alone, PT/OT pending (2) Dehydration: Likely related to viral illness and dry weather Cr 1.7 Monitor s/p 1L IVF in the ED, may need further hydration but will hold for now to avoid fluid overload (3) Diabetes: SSI PRN Holding PO meds (4) HTN (hypertension): continue home meds (5) DVT prophylaxis: Heparin for DVT proph History of Present Illness Primary Care Provider: Eliezer Knox MD 88 y/o M who was brought here after being found at home with AMS. Pt is uncertain why he is in the ED. He states he feels fine at present. Pt denies fever, SOB, chest pain, abd pain, n/v/c/d, LE pain or swelling. He remembers coming here in the ambulance, but he does not remember the events leading up to this. Pt's son states that his sister (pt's daughter) spoke with pt yesterday afternoon and he was fine. Another of the pt's sons spoke with him later in the evening and pt stated he was going to take a bath before bed. Son who is with pt now states that he tried to call pt around 2p and there was no answer to either home or cell phones. He called his sister who went to the pt's home and found pt lying in the bathtub in his underwear. There was no water drawn. Pt was unable to get out of the bathtub due to being too weak. He could not tell them what had happened. Son came over and they were unable to get him out of the bathtub so they called EMS. Son states that pt occasionally forgets "little things", but this is the first large chunk of missing time that they are aware of. Pt lives alone and has done so since his passed about 9 years ago. Pt is an avid [employer] fan, but he missed the game on Saturday due to feeling unwell. Another sister had been in town from [place] last week and she had some sort of nonspecific "cold". They thought pt had the same and so he gave his tickets to another daughter to stay home and rest. Pt remembers this episode. Pt denies fever, SOB, chest pain, abd pain, n/v/c/d, LE pain or swelling. Denies urinary sx. Allergies Allergy/AdvReac Type Severity Reaction Status Date / Time REDD Inhibitors Allergy Severe swelling Verified 09/30/18 19:48 of face, lips, etc. pneumococcal vaccine Allergy Mild ARM SWELLED Verified 09/30/18 19:48 losartan Allergy Unknown unknown Verified 09/30/18 19:48 Home Medications Home Medications Medication Instructions Recorded Confirmed Type alpha lipoic acid 300 mg PO DAILY 09/30/18 09/30/18 History aspirin [Aspir-81] 81 mg PO DAILY 09/30/18 09/30/18 History calcium carbonate-vitamin D3 1 cap PO DAILY 09/30/18 09/30/18 History [Calcium 600 + D(3)] cholecalciferol (vitamin D3) 1,000 unit PO DAILY 09/30/18 09/30/18 History [Vitamin D3] glimepiride 4 mg PO BID 09/30/18 09/30/18 History metoprolol succinate 25 mg PO DAILY 09/30/18 09/30/18 History omega [id number] oil [Fish Oil] 0 mg PO BID 09/30/18 09/30/18 History simvastatin 20 mg PO DAILY 09/30/18 09/30/18 History thiamine HCl (vitamin B1) [Vitamin 100 mg PO DAILY 09/30/18 09/30/18 History B-1] vitamin B complex 100 2-herbs 1 tab PO DAILY 09/30/18 09/30/18 History Past Med/Surg History Medical History Diabetes (Chronic) Heart disease (Chronic) Family History Father Heart attack Other Family history non-contributory Social History Current Living Situation: Alone Feels Safe at Home: Yes Smoking Status: Never smoker Hx Alcohol Use: No Hx Substance Use: No Review of Systems Pertinent positives and negatives reviewed in HPI--all others negative Physical Exam Vital Signs (Past 24 Hours): Last Vital Signs Temp 36.5 C 09/30/18 16:16 Pulse 105 H 09/30/18 18:00 Resp 20 09/30/18 18:00 BP 151/84 H 09/30/18 18:00 Pulse Ox 95 09/30/18 18:00 Constitutional: WD/WN, vitals as above Eyes: normal visual mar by confrontation and + anicteric sclerae Neck: normal visual inspection and trachea midline Respiratory: normal respiratory effort, lungs clear to auscultation Cardiovascular: Rate/Rhythm: regular rate and regular rhythm Gastrointestinal (Abdomen): Inspection/Auscultation: abdomen not distended Percussion/Palpation: abdomen soft; abdomen nontender Musculoskeletal: Head/Neck/Chest: normocephalic and head atraumatic negative for edema, peripheral pulses intact Skin: no rashes, warm and dry Neurologic: awake; not confused Speech / Cognition: normal speech 5/5 sagger soak strength b/l 5/5 L LE strength in flexion against resistance from the hip, however R is 4/5 5/5 plantar/dorsi flexion against resistance Psychiatric: A+Ox3, euthymic affect Cognition: remote memory grossly intact and attention grossly intact Pt is alert to month and year. Becomes tearful when discussing the of his and smiles when discussing how they met and their marriage Results & Data Diagnostic Findings CXR: neg for acute CT head: neg for acute ECG Indication: tachycardia Code Status & VTE Plan Code Status Full code VTE Prophylaxis Plan VTE Prophylaxis will be ordered: Yes (1) Change in mental status Altered mental status type: unspecified Qualified Code(s): R41.82 - Altered mental status, unspecified
[2018-09-30] MEDS ORDERED: GLUCOSE 10 TABS/TUBE PO PRN (21:55)
[2018-09-30] MEDS ORDERED: GLUCOSE 40% GEL 15 GM TUBE PO PRN (21:55)
[2018-09-30] MEDS ORDERED: ACETAMINOPHEN 325 MG TAB PO PRN (21:55)
[2018-09-30] MEDS ORDERED: DEXTROSE 50% 50 ML SYRINGE IV PRN (21:55)
[2018-09-30] MEDS ORDERED: PHARMACIST DISCHARGE MED REC CONSULT PRN (21:55)
[2018-09-30] MEDS ORDERED: MAGNESIUM HYDROXIDE SUSP 30 ML UDC PO PRN (21:55)
[2018-09-30] MEDS ORDERED: CARBOHYDRATES FOR HYPOGLYCEMIA PO PRN (21:55)
[2018-09-30] MEDS ORDERED: ONDANSETRON INJ 2 MG/ML 2 ML VIAL IV PRN (21:55)
[2018-09-30] MEDS ORDERED: GLUCAGON FOR INJ 1 MG VIAL SQ PRN (21:55)
[2018-09-30] MEDS ORDERED: COUGH DROP (SUGAR FREE) LOZ 24 LOZ/1 BOX BUCCAL ONE (22:42)
[2018-09-30] MEDS: OMEGA-3 (PURIFIED FISH OIL) 1 GM CAP PO SCH (22:47)
[2018-09-30] MEDS: INSULIN ASPART 100 UNITS/ML 3 ML PEN SC SCH (22:50)
[2018-10-01] MEDS: HEPARIN SOD 5,000 UNIT/0.5 ML VIAL SQ SCH ×4 (00:12→20:54)
[2018-10-01 06:00] LABS: Basophils # (auto) 0.02 K/uL (0-0.2); Basophils % (auto) 0.5 %; Eosinophils # (auto) 0.18 K/uL (0-0.5); Eosinophils % (auto) 4.2 %; Hematocrit (blood only) 34.1 % (42-52); Hemoglobin 11.6 g/dL (14.0-18.0); Immature Granulocytes # (auto) 0.01 K/uL (0.00-0.02); Immature Granulocytes % (auto) 0.2 %; Lymphocytes # (auto) 0.96 K/uL (1.2-3.4); Lymphocytes % (auto) 22.6 %; Mean Corpuscular Volume 88.8 fL (80-100); Mean Platelet Volume 10.8 fL (7.4-10.4); Monocytes # (auto) 0.66 K/uL (0.11-0.59); Monocytes % (auto) 15.6 %; Neutrophils # (auto) 2.41 K/uL (1.4-6.5); Neutrophils % (auto) 56.9 %; Platelet Count 132 K/uL (130-400); RDW Coefficient of Variation 13.2 % (11.5-14.5); RDW Standard Deviation 42.9 fL (36.4-46.3); Red Blood Count 3.84 M/uL (4.7-6.1); White Blood Count 4.24 K/uL (4.8-10.8)
[2018-10-01 06:30] LABS: BUN Creatinine Ratio 23.8 (10-20); Est GFR (Non-African American) 42.3; Potassium 3.7 mmol/L (3.5-5.1)
[2018-10-01 06:35] LABS: Estimated Average Glucose 212 mg/dl
[2018-10-01] MEDS: CHOLECALCIFEROL 1,000 UNITS TAB PO SCH (08:20)
[2018-10-01] MEDS: SIMVASTATIN 20 MG TAB PO SCH (08:21)
[2018-10-01] MEDS: THIAMINE HCL 100 MG TAB PO SCH (08:21)
[2018-10-01] MEDS: METOPROLOL SUCC 25MG EXT REL TAB PO SCH (08:21)
[2018-10-01] MEDS: OMEGA-3 (PURIFIED FISH OIL) 1 GM CAP PO SCH ×2 (08:21→20:55)
[2018-10-01] MEDS: ASPIRIN 81 MG ECTAB PO SCH (08:21)
[2018-10-01] MEDS: CALCIUM 600MG + VIT D 400 IU TAB PO SCH (08:21)
[2018-10-01] MEDS: INSULIN ASPART 100 UNITS/ML 3 ML PEN SC SCH ×4 (08:22→20:22)
[2018-10-01] MEDS ORDERED: SODIUM CHLORIDE 0.9% 1000ML 1,000 ML IV SCH (08:30)
[2018-10-01] MEDS ORDERED: ALPHA LIPOIC ACID 300 MG PO SCH (09:00)
[2018-10-01 11:39] LABS: Influenza B virus by PCR Neg for Influ B (Neg)
[2018-10-01] MEDS: OSELTAMIVIR PHOSPHATE SUSP 30 MG/5 ML UDP PO SCH ×2 (13:13→20:54)
--- NOTE | 2018-10-01 16:33 | Family Medicine Progress Note ---
Date of Service October 01, 2018 Assessment & Plan (1) Influenza A: 88-year-old male with a past medical history of hypertension, mild cognitive decline presents with acute encephalopathy. Patient has recently had viral URI symptoms. Metabolic encephalopathy in the setting of influenza A infection Patient has baseline dementia which is likely being worsened by viral illness Recommend a isolation room for influenza, initiated Tamiflu therapy, renal dosing 30 mg twice daily Delirium precautionsincluding frequent orientation, opening of shades during the day, calm dark environment in the evenings Continue gentle fluids normal saline 80 cc/hr, ordered to stop this afternoon Poorly controlled type 2 diabetes Patient's home medicine consist of glimepiride, will be holding for inpatient stay. Would question patient's compliance considering baseline mental status. Today patient's hemoglobin A1c was 9.0. Patient seen by special educator todaywill need prescription for OneTouch Verio test strips and onetouch delica lancets check 1 time per day at the time of discharge They also recommend that the patient have additional glucose controlDr. Pro mentioned in the previous note of adding Januvia 50 mg. Will discuss prior to discharge. Continue sliding scale insulin at this time. Hypertension/CAD Continue metoprolol 25, aspirin, simvastatin, fish oil CKD 3 Continue antihypertensives Continue renal dosing of medications Dementia PT/OT, speech eval DC planning for potential intermediate needs DVT prophylaxis Heparin CODE STATUS Full code FENpatient tolerating p.o., completed IV fluids this afternoon, will follow-up BMP for hydration status tomorrow Disposition; continue care and evaluation for metabolic encephalopathy in the setting of influenza a. We will follow discharge planning with case management (2) Change in mental status: (3) HTN (hypertension): (4) Dehydration: (5) Tachycardia: (6) Confusion: (7) Diabetes: Supervising Physician Co-Signing Physician Notes Resident Physician Supervision Note: I independently interviewed and examined the patient and verified the lea history and physical, reviewed labs and image studies, discussed the case with the resident Dr. Mensah and agree with the findings and care plan. Subjective 88-year-old male with a past medical history of hypertension, mild cognitive decline presents with acute encephalopathy. Patient has recently had viral URI symptoms. Today we see the patient, he is unsure why he is admitted to the hospital. He does remark that he is felt generally unwell over the past couple days. He did not recognize the medical student was in the room earlier this morning. He is alert and oriented to person, but not place or time. Review of systems; patient unable to accurately answer questions regarding physical symptoms secondary to encephalopathy Physical Exam 2 Vital Signs (Past 24 Hours): Last Vital Signs Temp 37.4 C 10/01/18 11:16 Pulse 101 H 10/01/18 11:16 Resp 21 10/01/18 11:16 BP 150/68 H 10/01/18 11:16 Pulse Ox 92 10/01/18 11:16 Constitutional: WD/WN, vitals as above Eyes: PERRL, conjunctivae normal, anicteric sclerae ENMT: external ear and nose normal, oropharynx normal Nose: + nasal mucous membrane abnormality (Red boggy) Neck: trachea midline, no thyromegaly Respiratory: normal respiratory effort, lungs clear to auscultation Cardiovascular: RRR, no murmur, no edema Gastrointestinal (Abdomen): normal bowel sounds, soft, nontender, no hepatosplenomegaly Musculoskeletal: no cyanosis or clubbing, extremities motor strength 5/5 Skin: no rashes, warm and dry Results & Data Laboratory Results Laboratory Last Values WBC 4.24 K/uL (4.8-10.8) L 10/01/18 05:25 RBC 3.84 M/uL (4.7-6.1) L 10/01/18 05:25 Hgb 11.6 g/dL (14.0-18.0) L 10/01/18 05:25 Hct 34.1 % (42-52) L 10/01/18 05:25 MCV 88.8 fL (80-100) 10/01/18 05:25 MCH 30.2 pg (25-34) 10/01/18 05:25 MCHC 34.0 g/dL (32-36) 10/01/18 05:25 RDW Std Deviation 42.9 fL (36.4-46.3) 10/01/18 05:25 RDW Coeff of April 13.2 % (11.5-14.5) 10/01/18 05:25 Plt Count 132 K/uL (130-400) 10/01/18 05:25 MPV 10.8 fL (7.4-10.4) H 10/01/18 05:25 Immature Gran % (Auto) 0.2 % 10/01/18 05:25 Neut % (Auto) 56.9 % 10/01/18 05:25 Lymph % (Auto) 22.6 % 10/01/18 05:25 [facility] % (Auto) 15.6 % 10/01/18 05:25 Eos % (Auto) 4.2 % 10/01/18 05:25 Baso % (Auto) 0.5 % 10/01/18 05:25 Immature Gran # (Auto) 0.01 K/uL (0.00-0.02) 10/01/18 05:25 Neut # (Auto) 2.41 K/uL (1.4-6.5) 10/01/18 05:25 Lymph # (Auto) 0.96 K/uL (1.2-3.4) L 10/01/18 05:25 [facility] # (Auto) 0.66 K/uL (0.11-0.59) H 10/01/18 05:25 Eos # (Auto) 0.18 K/uL (0-0.5) 10/01/18 05:25 Baso # (Auto) 0.02 K/uL (0-0.2) 10/01/18 05:25 PT 11.8 Seconds (9.0-12.0) 09/30/18 16:37 INR 1.2 (0.9-1.1) H 09/30/18 16:37 APTT 33.5 Seconds (21.0-31.0) H 09/30/18 16:37 PTT Ratio 1.2 09/30/18 16:37 VBG pH 7.38 (7.36-7.41) 09/30/18 16:37 VBG pCO2 42 mmHg (38-50) 09/30/18 16:37 VBG pO2 68 mmHg 09/30/18 16:37 VBG HCO3 24 mmol/L 09/30/18 16:37 VBG O2 Saturation 81.4 % 09/30/18 16:37 VBG Base Excess -1.0 mEq/L 09/30/18 16:37 Barometric Pressure 737.7 mm/Hg 09/30/18 16:37 Sodium 138 mmol/L (136-145) 10/01/18 05:25 Potassium 3.7 mmol/L (3.5-5.1) 10/01/18 05:25 Chloride 106 mmol/L (98-107) 10/01/18 05:25 Carbon Dioxide 26 mmol/L (21-32) 10/01/18 05:25 Anion Gap 6.0 (3-11) 10/01/18 05:25 BUN 35 mg/dl (7-18) H 10/01/18 05:25 Creatinine 1.47 mg/dl (0.6-1.4) H 10/01/18 05:25 Est Cr Clr Drug Dosing 40.0 ml/min 10/01/18 05:25 Est GFR ( Amer) 49.0 10/01/18 05:25 Est GFR (Non-Af Amer) 42.3 10/01/18 05:25 BUN/Creatinine Ratio 23.8 (10-20) H 10/01/18 05:25 Glucose 98 mg/dl (70-99) 10/01/18 05:25 POC Glucose 153 (70-99) H 10/01/18 11:15 Estimat Average Glucose 212 mg/dl 10/01/18 05:25 Hemoglobin A1c 9.0 % (4.5-5.6) H 10/01/18 05:25 Lactate 1.6 mmol/L (0.4-2.0) 09/30/18 16:37 Calcium 8.0 mg/dl (8.5-10.1) L 10/01/18 05:25 Magnesium 2.0 mg/dl (1.8-2.4) 09/30/18 16:37 Total Bilirubin 0.7 mg/dl (0.2-1) 09/30/18 16:37 AST 41 U/L (15-37) H 09/30/18 16:37 ALT 30 U/L (12-78) 09/30/18 16:37 Alkaline Phosphatase 70 U/L (45-117) 09/30/18 16:37 Ammonia 12.0 umol/L (11-32) 09/30/18 16:37 Troponin I < 0.015 ng/ml (0-0.045) 09/30/18 16:37 Total Protein 8.2 gm/dl (6.4-8.2) 09/30/18 16:37 Albumin 3.3 gm/dl (3.4-5.0) L 09/30/18 16:37 Globulin 4.9 gm/dl (2.5-4.0) H 09/30/18 16:37 Albumin/Globulin Ratio 0.7 (0.9-2) L 09/30/18 16:37 Triglycerides 189 mg/dl (0-150) H 10/01/18 05:25 Cholesterol 137 mg/dl (0-200) 10/01/18 05:25 LDL Cholesterol, Calc 63 mg/dl 10/01/18 05:25 VLDL Cholesterol, Calc 38 mg/dl 10/01/18 05:25 HDL Cholesterol 36 mg/dl 10/01/18 05:25 Cholesterol/HDL Ratio 4 10/01/18 05:25 TSH 1.100 uIu/ml (0.300-4.500) 09/30/18 16:37 Urine Color Yellow 09/30/18 17:27 Urine Appearance Cloudy (Clear) H 09/30/18 17:27 Urine pH 5.0 (4.5-7.5) 09/30/18 17:27 Ur Specific [place] 1.024 (1.000-1.030) 09/30/18 17:27 Urine Protein 3+ (Negative) H 09/30/18 17:27 Urine Glucose (UA) 1+ (Negative) H 09/30/18 17:27 Urine Ketones 1+ (Negative) H 09/30/18 17:27 Urine Blood 2+ (Negative) H 09/30/18 17:27 Urine Nitrite Negative (Negative) 09/30/18 17: Urine Bilirubin Negative (Negative) 09/30/18 17:27 Urine Urobilinogen Negative (Negative) 09/30/18 17:27 Ur Leukocyte Esterase Trace (Negative) H 09/30/18 17:27 Urine WBC (Auto) 10-30 /hpf (0-5) H 09/30/18 17:27 Urine RBC (Auto) 0-4 /hpf (0-4) 09/30/18 17:27 U Hyaline Cast (Auto) 5-10 /lpf (0-5) H 09/30/18 17:27 U Epithel Cells (Auto) >30 /lpf (0-5) H 09/30/18 17:27 Urine Bacteria (Auto) Negative (Negative) 09/30/18 17:27 Ur Renal Epithelial Cell Not Reportable 09/30/18 17:27 Granular Casts 5-10 /lpf (0) H 09/30/18 17:27 Urine Yeast Not Reportable 09/30/18 17:27 Influenza Type A (PCR) Pos for Influ A (Neg) A* 10/01/18 10:20 Influenza Type B (PCR) Neg for Influ B (Neg) 10/01/18 10:20 Resident Activity Tracking Resident Involvement: Resident Care Provided Care Provided: Adult Hospital Medicine (1) Change in mental status Altered mental status type: unspecified Qualified Code(s): R41.82 - Altered mental status, unspecified
[2018-10-01] MEDS: ALBUT/IPRATROP 3MG/0.5MG NEB 3 ML VIAL NEB PRN (21:22)
[2018-10-02] MEDS: HEPARIN SOD 5,000 UNIT/0.5 ML VIAL SQ SCH ×3 (05:46→20:50)
[2018-10-02 06:32] LABS: Basophils # (auto) 0.02 K/uL (0-0.2); Basophils % (auto) 0.5 %; Eosinophils # (auto) 0.23 K/uL (0-0.5); Eosinophils % (auto) 5.8 %; Hematocrit (blood only) 36.1 % (42-52); Hemoglobin 12.1 g/dL (14.0-18.0); Immature Granulocytes # (auto) 0.01 K/uL (0.00-0.02); Immature Granulocytes % (auto) 0.3 %; Lymphocytes # (auto) 1.45 K/uL (1.2-3.4); Lymphocytes % (auto) 36.4 %; Mean Corpuscular Hgb Conc 33.5 g/dL (32-36); Mean Platelet Volume 10.3 fL (7.4-10.4); Monocytes # (auto) 0.51 K/uL (0.11-0.59); Monocytes % (auto) 12.8 %; Neutrophils # (auto) 1.76 K/uL (1.4-6.5); Neutrophils % (auto) 44.2 %; Platelet Count 145 K/uL (130-400); RDW Coefficient of Variation 13.1 % (11.5-14.5); RDW Standard Deviation 43.2 fL (36.4-46.3); Red Blood Count 4.01 M/uL (4.7-6.1); White Blood Count 3.98 K/uL (4.8-10.8)
[2018-10-02 06:49] LABS: BUN Creatinine Ratio 20.8 (10-20); Calcium 8.6 mg/dl (8.5-10.1); Est GFR (Non-African American) 44.9; Potassium 3.8 mmol/L (3.5-5.1)
[2018-10-02] MEDS: OMEGA-3 (PURIFIED FISH OIL) 1 GM CAP PO SCH ×2 (09:03→20:50)
[2018-10-02] MEDS: CALCIUM 600MG + VIT D 400 IU TAB PO SCH (09:03)
[2018-10-02] MEDS: METOPROLOL SUCC 25MG EXT REL TAB PO SCH (09:03)
[2018-10-02] MEDS: SIMVASTATIN 20 MG TAB PO SCH (09:03)
[2018-10-02] MEDS: THIAMINE HCL 100 MG TAB PO SCH (09:03)
[2018-10-02] MEDS: CHOLECALCIFEROL 1,000 UNITS TAB PO SCH (09:03)
[2018-10-02] MEDS: INSULIN ASPART 100 UNITS/ML 3 ML PEN SC SCH ×4 (09:03→20:52)
[2018-10-02] MEDS: ASPIRIN 81 MG ECTAB PO SCH (09:03)
[2018-10-02] MEDS: OSELTAMIVIR PHOSPHATE SUSP 30 MG/5 ML UDP PO SCH ×2 (09:07→20:55)
--- NOTE | 2018-10-02 10:08 | XRay Report ---
XR chest 2V routine CLINICAL HISTORY: wheezing, recent flu COMPARISON STUDY: Chest radiograph September 30, 2018. FINDINGS: Lung volumes are normal. There is no pneumothorax or pleural effusion. Mild cardiomegaly is noted without evidence for pulmonary edema. Linear left midlung opacity favors atelectasis. There is no consolidation. IMPRESSION: No acute cardiopulmonary findings. Electronically signed by: Ishmael Sanders M.D. 10/02/2018 10:07 AM
--- NOTE | 2018-10-02 14:50 | Family Medicine Progress Note ---
Date of Service October 02, 2018 Assessment & Plan (1) Influenza A: 88-year-old male with a past medical history of hypertension, mild cognitive decline presents with acute encephalopathy. Patient has recently had viral URI symptoms. Metabolic encephalopathy in the setting of influenza A infection Patient has baseline dementia which is likely being worsened by viral illness Had a cough and wheezing this morningchest x-ray showed atelectasis. Continue to monitor for secondary bacterial pneumonia. Ordered incentive spirometer. Isolation room for influenza, initiated Tamiflu therapy, renal dosing 30 mg twice daily Delirium precautionsincluding frequent orientation, opening of shades during the day, calm dark environment in the evenings Poorly controlled type 2 diabetes We will restart glimepiride. Continue sliding scale insulin. Patient's hemoglobin A1c was 9.0 at admission. Patient seen by hospice educator-will need prescription for OneTouch Verio test strips and onetouch delica lancets check 1 time per day at the time of discharge They also recommend that the patient have additional glucose controlDr. Pro mentioned in the previous note of adding Januvia 50 mg. Defer diabetes management outpatient PCP. Continue sliding scale insulin at this time. -Will need prescription for OneTouch Verio test strips and onetouch delica lancets check 1 time per day at the time of discharge Hypertension/CAD Continue metoprolol 25, aspirin, simvastatin, fish oil CKD 3 Continue antihypertensives Continue renal dosing of medications Dementia -at baseline. Has been on aricept in past. d/tahira due to side effects. DC planning for potential prison needs DVT prophylaxis Heparin CODE STATUS Full code Disposition; PT/OT, speech eval. case management addressing placement Supervising Physician Co-Signing Physician Notes Resident Physician Supervision Note: I independently interviewed and examined the patient and verified the lea history and physical, reviewed labs and image studies, discussed the case with the resident Dr. Mensah and agree with the findings and care plan. Subjective 88-year-old male with a past medical history of hypertension, mild cognitive decline presents with acute encephalopathy. Patient is confused. He does not recall the events that led up to him being found. He does state that he has been feeling unwell recently. He states that he is feeling well this morning, but has a cough. Review of systems; patient unable to accurately answer questions regarding physical symptoms secondary to encephalopathy Physical Exam Vital Signs (Past 24 Hours): Last Vital Signs Temp 37.1 C 10/02/18 08:00 Pulse 84 10/02/18 08:00 Resp 16 10/02/18 08:00 BP 146/75 H 10/02/18 08:00 Pulse Ox 92 10/02/18 08:00 Constitutional: WD/WN, vitals as above Eyes: PERRL, conjunctivae normal, anicteric sclerae ENMT: external ear and nose normal, oropharynx normal Nose: + nasal mucous membrane abnormality (Red boggy) Neck: trachea midline, no thyromegaly Respiratory: normal respiratory effort, lungs clear to auscultation Auscultation: + wheezes (bilateral) Cardiovascular: RRR, no murmur, no edema Gastrointestinal (Abdomen): normal bowel sounds, soft, nontender, no hepatosplenomegaly Musculoskeletal: no cyanosis or clubbing, extremities motor strength 5/5 Skin: no rashes, warm and dry Results & Data Laboratory Results Laboratory Last Values WBC 3.98 K/uL (4.8-10.8) L 10/02/18 06:19 RBC 4.01 M/uL (4.7-6.1) L 10/02/18 06:19 Hgb 12.1 g/dL (14.0-18.0) L 10/02/18 06:19 Hct 36.1 % (42-52) L 10/02/18 06:19 MCV 90.0 fL (80-100) 10/02/18 06:19 MCH 30.2 pg (25-34) 10/02/18 06:19 MCHC 33.5 g/dL (32-36) 10/02/18 06:19 RDW Std Deviation 43.2 fL (36.4-46.3) 10/02/18 06:19 RDW Coeff of April 13.1 % (11.5-14.5) 10/02/18 06:19 Plt Count 145 K/uL (130-400) 10/02/18 06:19 MPV 10.3 fL (7.4-10.4) 10/02/18 06:19 Immature Gran % (Auto) 0.3 % 10/02/18 06:19 Neut % (Auto) 44.2 % 10/02/18 06:19 Lymph % (Auto) 36.4 % 10/02/18 06:19 [place] % (Auto) 12.8 % 10/02/18 06:19 Eos % (Auto) 5.8 % 10/02/18 06:19 Baso % (Auto) 0.5 % 10/02/18 06:19 Immature Gran # (Auto) 0.01 K/uL (0.00-0.02) 10/02/18 06:19 Neut # (Auto) 1.76 K/uL (1.4-6.5) 10/02/18 06:19 Lymph # (Auto) 1.45 K/uL (1.2-3.4) 10/02/18 06:19 [place] # (Auto) 0.51 K/uL (0.11-0.59) 10/02/18 06:19 Eos # (Auto) 0.23 K/uL (0-0.5) 10/02/18 06:19 Baso # (Auto) 0.02 K/uL (0-0.2) 10/02/18 06:19 PT 11.8 Seconds (9.0-12.0) 09/30/18 16:37 INR 1.2 (0.9-1.1) H 09/30/18 16:37 APTT 33.5 Seconds (21.0-31.0) H 09/30/18 16:37 PTT Ratio 1.2 09/30/18 16:37 VBG pH 7.38 (7.36-7.41) 09/30/18 16:37 VBG pCO2 42 mmHg (38-50) 09/30/18 16:37 VBG pO2 68 mmHg 09/30/18 16:37 VBG HCO3 24 mmol/L 09/30/18 16:37 VBG O2 Saturation 81.4 % 09/30/18 16:37 VBG Base Excess -1.0 mEq/L 09/30/18 16:37 Barometric Pressure 737.7 mm/Hg 09/30/18 16:37 Sodium 142 mmol/L (136-145) 10/02/18 06:19 Potassium 3.8 mmol/L (3.5-5.1) 10/02/18 06:19 Chloride 107 mmol/L (98-107) 10/02/18 06:19 Carbon Dioxide 28 mmol/L (21-32) 10/02/18 06:19 Anion Gap 7.0 (3-11) 10/02/18 06:19 BUN 29 mg/dl (7-18) H 10/02/18 06:19 Creatinine 1.40 mg/dl (0.6-1.4) 10/02/18 06:19 Est Cr Clr Drug Dosing 42.0 ml/min 10/02/18 06:19 Est GFR ( Amer) 52.0 10/02/18 06:19 Est GFR (Non-Af Amer) 44.9 10/02/18 06:19 BUN/Creatinine Ratio 20.8 (10-20) H 10/02/18 06:19 Glucose 80 mg/dl (70-99) 10/02/18 06:19 POC Glucose 206 (70-99) H 10/02/18 11:27 Estimat Average Glucose 212 mg/dl 10/01/18 05:25 Hemoglobin A1c 9.0 % (4.5-5.6) H 10/01/18 05:25 Lactate 1.6 mmol/L (0.4-2.0) 09/30/18 16:37 Calcium 8.6 mg/dl (8.5-10.1) 10/02/18 06:19 Magnesium 2.0 mg/dl (1.8-2.4) 09/30/18 16:37 Total Bilirubin 0.7 mg/dl (0.2-1) 09/30/18 16:37 AST 41 U/L (15-37) H 09/30/18 16:37 ALT 30 U/L (12-78) 09/30/18 16:37 Alkaline Phosphatase 70 U/L (45-117) 09/30/18 16:37 Ammonia 12.0 umol/L (11-32) 09/30/18 16:37 Troponin I < 0.015 ng/ml (0-0.045) 09/30/18 16:37 Total Protein 8.2 gm/dl (6.4-8.2) 09/30/18 16:37 Albumin 3.3 gm/dl (3.4-5.0) L 09/30/18 16:37 Globulin 4.9 gm/dl (2.5-4.0) H 09/30/18 16:37 Albumin/Globulin Ratio 0.7 (0.9-2) L 09/30/18 16:37 Triglycerides 189 mg/dl (0-150) H 10/01/18 05:25 Cholesterol 137 mg/dl (0-200) 10/01/18 05:25 LDL Cholesterol, Calc 63 mg/dl 10/01/18 05:25 VLDL Cholesterol, Calc 38 mg/dl 10/01/18 05:25 HDL Cholesterol 36 mg/dl 10/01/18 05:25 Cholesterol/HDL Ratio 4 10/01/18 05:25 TSH 1.100 uIu/ml (0.300-4.500) 09/30/18 16:37 Urine Color Yellow 09/30/18 17:27 Urine Appearance Cloudy (Clear) H 09/30/18 17:27 Urine pH 5.0 (4.5-7.5) 09/30/18 17:27 Ur Specific [place] 1.024 (1.000-1.030) 09/30/18 17:27 Urine Protein 3+ (Negative) H 09/30/18 17:27 Urine Glucose (UA) 1+ (Negative) H 09/30/18 17:27 Urine Ketones 1+ (Negative) H 09/30/18 17:27 Urine Blood 2+ (Negative) H 09/30/18 17:27 Urine Nitrite Negative (Negative) 09/30/18 17:27 Urine Bilirubin Negative (Negative) 09/30/18 17:27 Urine Urobilinogen Negative (Negative) 09/30/18 17:27 Ur Leukocyte Esterase Trace (Negative) H 09/30/18 17:27 Urine WBC (Auto) 10-30 /hpf (0-5) H 09/30/18 17:27 Urine RBC (Auto) 0-4 /hpf (0-4) 09/30/18 17:27 U Hyaline Cast (Auto) 5-10 /lpf (0-5) H 09/30/18 17:27 U Epithel Cells (Auto) >30 /lpf (0-5) H 09/30/18 17:27 Urine Bacteria (Auto) Negative (Negative) 09/30/18 17:27 Ur Renal Epithelial Cell Not Reportable 09/30/18 17:27 Granular Casts 5-10 /lpf (0) H 09/30/18 17:27 Urine Yeast Not Reportable 09/30/18 17:27 Influenza Type A (PCR) Pos for Influ A (Neg) A* 10/01/18 10:20 Influenza Type B (PCR) Neg for Influ B (Neg) 10/01/18 10:20 Resident Activity Tracking Resident Involvement: Resident Care Provided Care Provided: Adult Hospital Medicine
[2018-10-02] MEDS ORDERED: COUGH DROP (SUGAR FREE) LOZ 24 LOZ/1 BOX BUCCAL ONE (17:53)
[2018-10-02] MEDS: ALBUT/IPRATROP 3MG/0.5MG NEB 3 ML VIAL NEB PRN (22:46)
[2018-10-03] MEDS: HEPARIN SOD 5,000 UNIT/0.5 ML VIAL SQ SCH ×3 (06:22→21:06)
[2018-10-03 06:41] LABS: Basophils # (auto) 0.02 K/uL (0-0.2); Basophils % (auto) 0.5 %; Eosinophils # (auto) 0.31 K/uL (0-0.5); Eosinophils % (auto) 7.1 %; Hematocrit (blood only) 33.6 % (42-52); Hemoglobin 11.3 g/dL (14.0-18.0); Immature Granulocytes # (auto) 0.01 K/uL (0.00-0.02); Immature Granulocytes % (auto) 0.2 %; Lymphocytes # (auto) 1.66 K/uL (1.2-3.4); Lymphocytes % (auto) 37.9 %; Mean Corpuscular Hgb Conc 33.6 g/dL (32-36); Mean Corpuscular Volume 87.7 fL (80-100); Mean Platelet Volume 10.8 fL (7.4-10.4); Monocytes # (auto) 0.38 K/uL (0.11-0.59); Monocytes % (auto) 8.7 %; Neutrophils % (auto) 45.6 %; Platelet Count 153 K/uL (130-400); RDW Coefficient of Variation 13.1 % (11.5-14.5); RDW Standard Deviation 42.4 fL (36.4-46.3); Red Blood Count 3.83 M/uL (4.7-6.1); White Blood Count 4.38 K/uL (4.8-10.8)
[2018-10-03] MEDS: SIMVASTATIN 20 MG TAB PO SCH (09:00)
[2018-10-03] MEDS: OMEGA-3 (PURIFIED FISH OIL) 1 GM CAP PO SCH ×2 (09:00→21:05)
[2018-10-03] MEDS: INSULIN ASPART 100 UNITS/ML 3 ML PEN SC SCH ×4 (09:23→21:06)
[2018-10-03] MEDS: CHOLECALCIFEROL 1,000 UNITS TAB PO SCH (09:25)
[2018-10-03] MEDS: CALCIUM 600MG + VIT D 400 IU TAB PO SCH (09:25)
[2018-10-03] MEDS: METOPROLOL SUCC 25MG EXT REL TAB PO SCH (09:25)
[2018-10-03] MEDS: ASPIRIN 81 MG ECTAB PO SCH (09:26)
[2018-10-03] MEDS: THIAMINE HCL 100 MG TAB PO SCH (09:28)
[2018-10-03] MEDS: OSELTAMIVIR PHOSPHATE SUSP 30 MG/5 ML UDP PO SCH ×2 (10:22→21:10)
--- NOTE | 2018-10-03 21:12 | Family Medicine Progress Note ---
Date of Service October 03, 2018 Assessment & Plan (1) Influenza A: 88M with a past medical history of hypertension, mild cognitive decline presents with acute encephalopathy. Patient has recently had viral URI symptoms. Metabolic encephalopathy in the setting of influenza A infection Patient has baseline dementia which is likely being worsened by viral illness Isolation room for influenza, initiated Tamiflu therapy, renal dosing 30 mg twice daily, end date October 06. Delirium precautionsincluding frequent orientation, opening of shades during the day, calm dark environment in the evenings c/w incentive spirometer. Poorly controlled type 2 diabetes c/w glimepiride & insulin sliding scale. Patient's hemoglobin A1c was 9.0 at admission. Patient seen by senior health educator- recommend that the patient have additional glucose controlDr. Pro mentioned in the previous note of adding Januvia 50 mg. -Will need prescription for OneTouch Verio test strips and onetouch delica lancets check 1 time per day at the time of discharge. - Defer diabetes management outpatient PCP. Hypertension/CAD Continue metoprolol 25, aspirin, simvastatin, fish oil CKD 3 Continue antihypertensives Continue renal dosing of medications Dementia -at baseline. Has been on aricept in past. d/tahira due to side effects. DC planning for potential nursing home needs DVT prophylaxis Heparin CODE STATUS Full code Disposition; agreeable to go to [facility] when a bed is available. They can potentially accept when patient. Supervising Physician Co-Signing Physician Notes Resident Physician Supervision Note: I independently interviewed and examined the patient and verified the lea history and physical, reviewed labs and image studies, discussed the case with the resident Dr. Menendez and agree with the findings and care plan. Subjective Pt seen and examined at bedside. Feel good. Is back to baseline. Still not oriented to place, city or year. Has no complaints today. No acute overnight events. ROS: No chest pain, no SOB, no dyspnea on exertion, no palpitations, no fevers, no chills, no nausea, no vomiting, no diarrhea, no dysuria, no rash. Physical Exam Vital Signs (Past 24 Hours): Last Vital Signs Temp 36.8 C 10/03/18 15:38 Pulse 81 10/03/18 15:38 Resp 20 10/03/18 15:38 BP 114/68 10/03/18 15:38 Pulse Ox 91 10/03/18 15:38 Constitutional: WD/WN, vitals as above Eyes: PERRL, conjunctivae normal, anicteric sclerae normal visual mar by confrontation and + anicteric sclerae ENMT: external ear and nose normal, oropharynx normal Nose: + nasal mucous membrane abnormality (Red boggy) Neck: trachea midline, no thyromegaly normal visual inspection and trachea midline Respiratory: normal respiratory effort, lungs clear to auscultation Cardiovascular: RRR, no murmur, no edema Gastrointestinal (Abdomen): normal bowel sounds, soft, nontender, no hepatosplenomegaly Inspection/Auscultation: abdomen not distended Percussion/Palpation: abdomen soft; abdomen nontender Musculoskeletal: no cyanosis or clubbing, extremities motor strength 5/5 Head/Neck/Chest: normocephalic and head atraumatic Skin: no rashes, warm and dry Neurologic: awake (oriented to person, not place (wrong city & hospital), time (wrong year)) Speech / Cognition: normal speech Psychiatric: Cognition: remote memory grossly intact and attention grossly intact Resident Activity Tracking Resident Involvement: Resident Care Provided Care Provided: Adult Hospital Medicine
[2018-10-03] MEDS: ALBUT/IPRATROP 3MG/0.5MG NEB 3 ML VIAL NEB PRN (22:35)
[2018-10-04] MEDS: HEPARIN SOD 5,000 UNIT/0.5 ML VIAL SQ SCH ×3 (06:36→20:53)
[2018-10-04] MEDS: OMEGA-3 (PURIFIED FISH OIL) 1 GM CAP PO SCH ×2 (09:20→20:51)
[2018-10-04] MEDS: OSELTAMIVIR PHOSPHATE SUSP 30 MG/5 ML UDP PO SCH ×2 (09:23→20:58)
[2018-10-04] MEDS: CALCIUM 600MG + VIT D 400 IU TAB PO SCH (09:24)
[2018-10-04] MEDS: SIMVASTATIN 20 MG TAB PO SCH (09:24)
[2018-10-04] MEDS: CHOLECALCIFEROL 1,000 UNITS TAB PO SCH (09:24)
[2018-10-04] MEDS: ASPIRIN 81 MG ECTAB PO SCH (09:24)
[2018-10-04] MEDS: METOPROLOL SUCC 25MG EXT REL TAB PO SCH (09:24)
[2018-10-04] MEDS: THIAMINE HCL 100 MG TAB PO SCH (09:25)
[2018-10-04] MEDS: INSULIN ASPART 100 UNITS/ML 3 ML PEN SC SCH ×4 (09:30→20:50)
[2018-10-04] MEDS ORDERED: Nursing to Pharmacy Communication ONE (09:37)
--- NOTE | 2018-10-04 11:56 | Family Medicine Progress Note ---
Date of Service October 04, 2018 Assessment & Plan (1) Influenza A: 88M with a past medical history of hypertension, mild cognitive decline presents with acute encephalopathy. Patient has recently had viral URI symptoms. 1) Metabolic encephalopathy in the setting of influenza A infection Patient has baseline dementia which is likely being worsened by viral illness Isolation room for influenza, initiated Tamiflu therapy, renal dosing 30 mg twice daily, end date October 06. Delirium precautionsincluding frequent orientation, opening of shades during the day, calm dark environment in the evenings c/w incentive spirometer. 2) Poorly controlled type 2 diabetes c/w glimepiride & insulin sliding scale. Patient's hemoglobin A1c was 9.0 at admission. - Defer diabetes management outpatient PCP. 3) Hypertension/CAD Continue metoprolol 25, aspirin, simvastatin, fish oil 4) CKD 3 Continue antihypertensives Continue renal dosing of medications 5) Dementia -at baseline. Has been on aricept in past. d/tahira due to side effects. DC planning for potential long-term needs DVT prophylaxis Heparin CODE STATUS Full code Disposition; agreeable to go to [facility] when a bed is available. According to [facility] they note that they will take him 48 hours after his last dose of tamiflu as long as her remains afebrile. Supervising Physician Co-Signing Physician Notes Resident Physician Supervision Note: I independently interviewed and examined the patient and verified the lea history and physical, reviewed labs and image studies, discussed the case with the resident Dr. Beatty and agree with the findings and care plan. Subjective Patient feeling well and without any complaints today. He denies any cough, SOB, chest pain, nasal congestion, sore throat, fevers and chills. He also denies any leg swelling, leg pain, diarrhea, troubles urinating. He is orientated to person but not to place or time. He is awaiting to be placed at [facility] Review of Systems All systems reviewed & are unremarkable except as noted in HPI & below Physical Exam Vital Signs (Past 24 Hours): Last Vital Signs Temp 36.7 C 10/04/18 07:50 Pulse 79 10/04/18 07:50 Resp 18 10/04/18 07:50 BP 131/70 10/04/18 07:50 Pulse Ox 95 10/04/18 07:50 Constitutional: WD/WN, vitals as above no acute distress Eyes: PERRL, conjunctivae normal, anicteric sclerae ENMT: external ear and nose normal, oropharynx normal Neck: trachea midline, no thyromegaly Respiratory: normal respiratory effort, lungs clear to auscultation Cardiovascular: RRR, no murmur, no edema Gastrointestinal (Abdomen): normal bowel sounds, soft, nontender, no hepatosplenomegaly Musculoskeletal: no cyanosis or clubbing, extremities motor strength 5/5 Skin: no rashes, warm and dry Psychiatric: A+Ox3, euthymic affect
[2018-10-05] MEDS: HEPARIN SOD 5,000 UNIT/0.5 ML VIAL SQ SCH ×3 (06:36→21:17)
[2018-10-05] MEDS: INSULIN ASPART 100 UNITS/ML 3 ML PEN SC SCH ×4 (09:38→21:15)
[2018-10-05] MEDS: THIAMINE HCL 100 MG TAB PO SCH (09:39)
[2018-10-05] MEDS: CHOLECALCIFEROL 1,000 UNITS TAB PO SCH (09:40)
[2018-10-05] MEDS: OSELTAMIVIR PHOSPHATE SUSP 30 MG/5 ML UDP PO SCH ×2 (09:40→21:28)
[2018-10-05] MEDS: METOPROLOL SUCC 25MG EXT REL TAB PO SCH (09:40)
[2018-10-05] MEDS: ASPIRIN 81 MG ECTAB PO SCH (09:40)
[2018-10-05] MEDS: SIMVASTATIN 20 MG TAB PO SCH (09:40)
[2018-10-05] MEDS: CALCIUM 600MG + VIT D 400 IU TAB PO SCH (09:40)
--- NOTE | 2018-10-05 11:29 | Family Medicine Progress Note ---
Date of Service October 05, 2018 Assessment & Plan (1) Influenza A: (1) Influenza A: 88M with a past medical history of hypertension, mild cognitive decline presents with acute encephalopathy. Patient has recently had viral URI symptoms. 1) Metabolic encephalopathy in the setting of influenza A infection (resolved) Patient has baseline dementia which is likely being worsened by viral illness Isolation room for influenza, initiated Tamiflu therapy, renal dosing 30 mg twice daily, end date October 06. Delirium precautionsincluding frequent orientation, opening of shades during the day, calm dark environment in the evenings c/w incentive spirometer. 2) Poorly controlled type 2 diabetes c/w glimepiride & insulin sliding scale. Patient's hemoglobin A1c was 9.0 at admission. - Defer diabetes management outpatient PCP. 3) Hypertension/CAD Continue metoprolol 25, aspirin, simvastatin, fish oil 4) CKD 3 Continue antihypertensives Continue renal dosing of medications 5) Dementia -at baseline. Has been on aricept in past. d/tahira due to side effects. DC planning for potential senior living needs DVT prophylaxis Heparin CODE STATUS Full code Disposition; agreeable to go to [facility] when a bed is available. According to [facility] they note that they will take him 48 hours after his last dose of tamiflu as long as her remains afebrile. First possible day would be October 08 Supervising Physician Co-Signing Physician Notes Resident Physician Supervision Note: I independently interviewed and examined the patient and verified the lea history and physical, reviewed labs and image studies, discussed the case with the resident Dr. Beatty and agree with the findings and care plan. Subjective Patient feels well today and wants to go home. He says he does not know who I am despite seeing him yesterday. He denies any fevers, chills, cough, shortness of breath, chest pain, abdominal pain, nausea, vomiting, urinary symptoms, diarrhea, Review of Systems All systems reviewed & are unremarkable except as noted in HPI & below Physical Exam Vital Signs (Past 24 Hours): Last Vital Signs Temp 36.8 C 10/05/18 08:00 Pulse 72 10/05/18 08:00 Resp 18 10/05/18 08:00 BP 136/72 10/05/18 08:00 Pulse Ox 94 10/05/18 08:00 Physical Exam: Constitutional: WD/WN, vitals as above no acute distress Eyes: PERRL, conjunctivae normal, anicteric sclerae ENMT: external ear and nose normal, oropharynx normal Neck: trachea midline, no thyromegaly Respiratory: normal respiratory effort, lungs clear to auscultation Cardiovascular: RRR, no murmur, no edema Gastrointestinal (Abdomen): normal bowel sounds, soft, nontender, no hepatosplenomegaly Musculoskeletal: no cyanosis or clubbing, extremities motor strength 5/5 Skin: no rashes, warm and dry Psychiatric: A+Ox3, euthymic affect
[2018-10-05] MEDS: OMEGA-3 (PURIFIED FISH OIL) 1 GM CAP PO SCH ×2 (12:33→21:17)
[2018-10-05] MEDS: ALBUT/IPRATROP 3MG/0.5MG NEB 3 ML VIAL NEB PRN (20:05)
[2018-10-05] MEDS: COUGH DROP (SUGAR FREE) LOZ 24 LOZ/1 BOX BUCCAL PRN (21:25)
[2018-10-06] MEDS: HEPARIN SOD 5,000 UNIT/0.5 ML VIAL SQ SCH ×3 (05:56→21:06)
[2018-10-06] MEDS: SIMVASTATIN 20 MG TAB PO SCH (08:08)
[2018-10-06] MEDS: ASPIRIN 81 MG ECTAB PO SCH (08:08)
[2018-10-06] MEDS: OMEGA-3 (PURIFIED FISH OIL) 1 GM CAP PO SCH ×2 (08:08→20:57)
[2018-10-06] MEDS: METOPROLOL SUCC 25MG EXT REL TAB PO SCH (08:08)
[2018-10-06] MEDS: CHOLECALCIFEROL 1,000 UNITS TAB PO SCH (08:08)
[2018-10-06] MEDS: THIAMINE HCL 100 MG TAB PO SCH (08:09)
[2018-10-06] MEDS: CALCIUM 600MG + VIT D 400 IU TAB PO SCH (08:10)
[2018-10-06] MEDS: OSELTAMIVIR PHOSPHATE SUSP 30 MG/5 ML UDP PO SCH (08:16)
[2018-10-06] MEDS: INSULIN ASPART 100 UNITS/ML 3 ML PEN SC SCH ×4 (08:18→21:01)
--- NOTE | 2018-10-06 10:36 | Family Medicine Progress Note ---
Date of Service October 06, 2018 Assessment & Plan (1) Influenza A: (1) Influenza A: 88M with a past medical history of hypertension, mild cognitive decline presents with acute encephalopathy. Patient has recently had viral URI symptoms. 1) Metabolic encephalopathy in the setting of influenza A infection (resolved) Patient has baseline dementia which is likely being worsened by viral illness Isolation room for influenza, initiated Tamiflu therapy, renal dosing 30 mg twice daily, end date October 06. Delirium precautionsincluding frequent orientation, opening of shades during the day, calm dark environment in the evenings c/w incentive spirometer. 2) Poorly controlled type 2 diabetes c/w glimepiride & insulin sliding scale. Patient's hemoglobin A1c was 9.0 at admission. - Defer diabetes management outpatient PCP. 3) Hypertension/CAD Continue metoprolol 25, aspirin, simvastatin, fish oil 4) CKD 3 Continue antihypertensives Continue renal dosing of medications 5) Dementia -at baseline. Has been on aricept in past. d/tahira due to side effects. DC planning for potential care home needs 6) Contact Dermatitis - Avoiding antihistamines - Will use triamcinolone ointment, apply Q6HR to lower back DVT prophylaxis Heparin CODE STATUS Full code Disposition; agreeable to go to [facility] when a bed is available. According to [facility] they note that they will take him 48 hours after his last dose of tamiflu as long as her remains afebrile. First possible day would be October 08 Supervising Physician Co-Signing Physician Notes I personally examined the patient and verified all lea points of history and exam, discussed case, and agree with decision making with Dr Mensah. Feeling okay other than some itching on his back and side. His son emphasizes they would like to have sleep study done. Vitals noted, in general he is in no distress. HEENT normal cephalic atraumatic mucous membranes are moist. Skin on his back looks dry with may be a vaguely flat dull rash to it. He has a few reddish papules on the left side of his chest, he notes these are itchy as well Influenzastable, finish Tamiflu, to SNF once they are willing to accept Skin rashnonspecific, possibly contact related to sheets, steroid cream Concern on sleep apneasleep study as an outpatient DVT prophheparin subcu Otherwise as above Subjective Doing well this morning. Oriented to person, place, but not time. Acknowledges memory issues, but does not understand how he was found. States that he is taking care of himself at home prior to flu. Son states that he will being living with his father following discharge from SNF. Patient does describe lower back rash and itching. He denies any fevers, chills, cough, shortness of breath, chest pain, abdominal pain, nausea, vomiting, urinary symptoms, diarrhea, Physical Exam Vital Signs (Past 24 Hours): Last Vital Signs Temp 37.1 C 10/06/18 08:20 Pulse 70 10/06/18 08:20 Resp 16 10/06/18 08:20 BP 132/67 10/06/18 08:20 Pulse Ox 90 10/06/18 08:20 Constitutional: WD/WN, vitals as above Eyes: PERRL, conjunctivae normal, anicteric sclerae ENMT: external ear and nose normal, oropharynx normal Nose: + nasal mucous membrane abnormality (Red boggy) Neck: trachea midline, no thyromegaly Respiratory: normal respiratory effort, lungs clear to auscultation Auscultation: + wheezes (bilateral) Cardiovascular: RRR, no murmur, no edema Gastrointestinal (Abdomen): normal bowel sounds, soft, nontender, no hepatosplenomegaly Musculoskeletal: no cyanosis or clubbing, extremities motor strength 5/5 Skin: no rashes, warm and dry erythematous papules on lower back Results & Data Laboratory Results Laboratory Last Values WBC 4.38 K/uL (4.8-10.8) L 10/03/18 06:21 RBC 3.83 M/uL (4.7-6.1) L 10/03/18 06:21 Hgb 11.3 g/dL (14.0-18.0) L 10/03/18 06:21 Hct 33.6 % (42-52) L 10/03/18 06:21 MCV 87.7 fL (80-100) 10/03/18 06:21 MCH 29.5 pg (25-34) 10/03/18 06:21 MCHC 33.6 g/dL (32-36) 10/03/18 06:21 RDW Std Deviation 42.4 fL (36.4-46.3) 10/03/18 06:21 RDW Coeff of April 13.1 % (11.5-14.5) 10/03/18 06:21 Plt Count 153 K/uL (130-400) 10/03/18 06:21 MPV 10.8 fL (7.4-10.4) H 10/03/18 06:21 Immature Gran % (Auto) 0.2 % 10/03/18 06:21 Neut % (Auto) 45.6 % 10/03/18 06:21 Lymph % (Auto) 37.9 % 10/03/18 06:21 Larue % (Auto) 8.7 % 10/03/18 06:21 Eos % (Auto) 7.1 % 10/03/18 06:21 Baso % (Auto) 0.5 % 10/03/18 06:21 Immature Gran # (Auto) 0.01 K/uL (0.00-0.02) 10/03/18 06:21 Neut # (Auto) 2.00 K/uL (1.4-6.5) 10/03/18 06:21 Lymph # (Auto) 1.66 K/uL (1.2-3.4) 10/03/18 06:21 Larue # (Auto) 0.38 K/uL (0.11-0.59) 10/03/18 06:21 Eos # (Auto) 0.31 K/uL (0-0.5) 10/03/18 06:21 Baso # (Auto) 0.02 K/uL (0-0.2) 10/03/18 06:21 PT 11.8 Seconds (9.0-12.0) 09/30/18 16:37 INR 1.2 (0.9-1.1) H 09/30/18 16:37 APTT 33.5 Seconds (21.0-31.0) H 09/30/18 16:37 PTT Ratio 1.2 09/30/18 16:37 VBG pH 7.38 (7.36-7.41) 09/30/18 16:37 VBG pCO2 42 mmHg (38-50) 09/30/18 16:37 VBG pO2 68 mmHg 09/30/18 16:37 VBG HCO3 24 mmol/L 09/30/18 16:37 VBG O2 Saturation 81.4 % 09/30/18 16:37 VBG Base Excess -1.0 mEq/L 09/30/18 16:37 Barometric Pressure 737.7 mm/Hg 09/30/18 16:37 Sodium 142 mmol/L (136-145) 10/02/18 06:19 Potassium 3.8 mmol/L (3.5-5.1) 10/02/18 06:19 Chloride 107 mmol/L (98-107) 10/02/18 06:19 Carbon Dioxide 28 mmol/L (21-32) 10/02/18 06:19 Anion Gap 7.0 (3-11) 10/02/18 06:19 BUN 29 mg/dl (7-18) H 10/02/18 06:19 Creatinine 1.40 mg/dl (0.6-1.4) 10/02/18 06:19 Est Cr Clr Drug Dosing 42.0 ml/min 10/02/18 06:19 Est GFR ( Amer) 52.0 10/02/18 06:19 Est GFR (Non-Af Amer) 44.9 10/02/18 06:19 BUN/Creatinine Ratio 20.8 (10-20) H 10/02/18 06:19 Glucose 80 mg/dl (70-99) 10/02/18 06:19 POC Glucose 145 (70-99) H 10/06/18 08:10 Estimat Average Glucose 212 mg/dl 10/01/18 05:25 Hemoglobin A1c 9.0 % (4.5-5.6) H 10/01/18 05:25 Lactate 1.6 mmol/L (0.4-2.0) 09/30/18 16:37 Calcium 8.6 mg/dl (8.5-10.1) 10/02/18 06:19 Magnesium 2.0 mg/dl (1.8-2.4) 09/30/18 16:37 Total Bilirubin 0.7 mg/dl (0.2-1) 09/30/18 16:37 AST 41 U/L (15-37) H 09/30/18 16:37 ALT 30 U/L (12-78) 09/30/18 16:37 Alkaline Phosphatase 70 U/L (45-117) 09/30/18 16:37 Ammonia 12.0 umol/L (11-32) 09/30/18 16:37 Troponin I < 0.015 ng/ml (0-0.045) 09/30/18 16:37 Total Protein 8.2 gm/dl (6.4-8.2) 09/30/18 16:37 Albumin 3.3 gm/dl (3.4-5.0) L 09/30/18 16:37 Globulin 4.9 gm/dl (2.5-4.0) H 09/30/18 16:37 Albumin/Globulin Ratio 0.7 (0.9-2) L 09/30/18 16:37 Triglycerides 189 mg/dl (0-150) H 10/01/18 05:25 Cholesterol 137 mg/dl (0-200) 10/01/18 05:25 LDL Cholesterol, Calc 63 mg/dl 10/01/18 05:25 VLDL Cholesterol, Calc 38 mg/dl 10/01/18 05:25 HDL Cholesterol 36 mg/dl 10/01/18 05:25 Cholesterol/HDL Ratio 4 10/01/18 05:25 TSH 1.100 uIu/ml (0.300-4.500) 09/30/18 16:37 Urine Color Yellow 09/30/18 17:27 Urine Appearance Cloudy (Clear) H 09/30/18 17:27 Urine pH 5.0 (4.5-7.5) 09/30/18 17:27 Ur Specific [place] 1.024 (1.000-1.030) 09/30/18 17:27 Urine Protein 3+ (Negative) H 09/30/18 17:27 Urine Glucose (UA) 1+ (Negative) H 09/30/18 17:27 Urine Ketones 1+ (Negative) H 09/30/18 17:27 Urine Blood 2+ (Negative) H 09/30/18 17:27 Urine Nitrite Negative (Negative) 09/30/18 17:27 Urine Bilirubin Negative (Negative) 09/30/18 17:27 Urine Urobilinogen Negative (Negative) 09/30/18 17:27 Ur Leukocyte Esterase Trace (Negative) H 09/30/18 17:27 Urine WBC (Auto) 10-30 /hpf (0-5) H 09/30/18 17:27 Urine RBC (Auto) 0-4 /hpf (0-4) 09/30/18 17:27 U Hyaline Cast (Auto) 5-10 /lpf (0-5) H 09/30/18 17:27 U Epithel Cells (Auto) >30 /lpf (0-5) H 09/30/18 17:27 Urine Bacteria (Auto) Negative (Negative) 09/30/18 17:27 Ur Renal Epithelial Cell Not Reportable 09/30/18 17:27 Granular Casts 5-10 /lpf (0) H 09/30/18 17:27 Urine Yeast Not Reportable 09/30/18 17:27 Influenza Type A (PCR) Pos for Influ A (Neg) A* 10/01/18 10:20 Influenza Type B (PCR) Neg for Influ B (Neg) 10/01/18 10:20 Resident Activity Tracking Resident Involvement: Resident Care Provided Care Provided: Adult Hospital Medicine
[2018-10-06] MEDS: TRIAMCINOLONE ACET 0.5% CR 15 GM TUBE EXT PRN (12:54)
[2018-10-07] MEDS: HEPARIN SOD 5,000 UNIT/0.5 ML VIAL SQ SCH ×3 (05:55→20:39)
[2018-10-07] MEDS: CHOLECALCIFEROL 1,000 UNITS TAB PO SCH (08:21)
[2018-10-07] MEDS: METOPROLOL SUCC 25MG EXT REL TAB PO SCH (08:22)
[2018-10-07] MEDS: SIMVASTATIN 20 MG TAB PO SCH (08:22)
[2018-10-07] MEDS: THIAMINE HCL 100 MG TAB PO SCH (08:22)
[2018-10-07] MEDS: ASPIRIN 81 MG ECTAB PO SCH (08:22)
[2018-10-07] MEDS: CALCIUM 600MG + VIT D 400 IU TAB PO SCH (08:22)
[2018-10-07] MEDS: OMEGA-3 (PURIFIED FISH OIL) 1 GM CAP PO SCH ×2 (08:22→20:41)
[2018-10-07] MEDS: TRIAMCINOLONE ACET 0.5% CR 15 GM TUBE EXT PRN (08:23)
[2018-10-07] MEDS: INSULIN ASPART 100 UNITS/ML 3 ML PEN SC SCH ×4 (08:24→20:38)
[2018-10-07] MEDS ORDERED: INSULIN GLARGINE SOLOSTAR 100 UNITS/ML 3 ML PEN SC SCH (09:00)
--- NOTE | 2018-10-07 09:25 | Family Medicine Progress Note ---
Date of Service October 07, 2018 Assessment & Plan (1) Influenza A: (1) Influenza A: 88M with a past medical history of hypertension, mild cognitive decline presents with acute encephalopathy. Patient has recently had viral URI symptoms. 1) Metabolic encephalopathy in the setting of influenza A infection (resolved) Patient has baseline dementia which is likely being worsened by viral illness Isolation room for influenza, initiated Tamiflu therapy, renal dosing 30 mg twice daily, end date October 06. Delirium precautionsincluding frequent orientation, opening of shades during the day, calm dark environment in the evenings c/w incentive spirometer. 2) Poorly controlled type 2 diabetes c/w glimepiride & insulin sliding scale. Patient's hemoglobin A1c was 9.0 at admission. - Defer diabetes management outpatient PCP. 3) Hypertension/CAD Continue metoprolol 25, aspirin, simvastatin, fish oil 4) CKD 3 Continue antihypertensives Continue renal dosing of medications 5) Dementia -at baseline. Has been on aricept in past. d/tahira due to side effects. DC planning for potential long term needs 6) Contact Dermatitis - Avoiding antihistamines - Will use triamcinolone ointment, apply Q6HR to lower back DVT prophylaxis Heparin CODE STATUS Full code Disposition; [facility] According to [facility] they note that they will take him 48 hours after his last dose of tamiflu as long as her remains afebrile. First possible day would be October 08 Supervising Physician Co-Signing Physician Notes I personally examined the patient and verified all lea points of history and exam, discussed case, and agree with decision making with Dr Mensah. Feeling okay, no complaints. He is reading a [employer] bulletin. Vitals noted, in general he is in no distress. HEENT normal cephalic atraumatic mucous membranes are moist. Breathing unlabored no accessory muscle use good effort. Influenzastable, finished Tamiflu, to SNF once they are willing to accept Skin rashnonspecific, possibly contact related to sheets, steroid cream, no complaints today. Concern on sleep apneasleep study as an outpatient DVT prophheparin subcu Otherwise as above Subjective Patient is doing well this morning. Continues to have issues with memory, but is answering questions appropriately. Spoke at length this morning about his lifetold me about his and his family. Denies any acute symptoms at this time. He does relate that he has some itchiness back, but feels that the triamcinolone ointment is helping. He denies any fevers, chills, cough, shortness of breath, chest pain, abdominal pain, nausea, vomiting, urinary symptoms, diarrhea, Physical Exam Vital Signs (Past 24 Hours): Last Vital Signs Temp 36.8 C 10/07/18 07:06 Pulse 79 10/07/18 07:06 Resp 20 10/07/18 07:06 BP 121/66 10/07/18 07:06 Pulse Ox 94 10/07/18 07:06 Constitutional: WD/WN, vitals as above Eyes: PERRL, conjunctivae normal, anicteric sclerae ENMT: external ear and nose normal, oropharynx normal Neck: trachea midline, no thyromegaly Respiratory: normal respiratory effort, lungs clear to auscultation Auscultation: + wheezes (bilateral) Cardiovascular: RRR, no murmur, no edema Gastrointestinal (Abdomen): normal bowel sounds, soft, nontender, no hepatosplenomegaly Musculoskeletal: no cyanosis or clubbing, extremities motor strength 5/5 Skin: no rashes, warm and dry Results & Data Laboratory Results Laboratory Last Values WBC 4.38 K/uL (4.8-10.8) L 10/03/18 06:21 RBC 3.83 M/uL (4.7-6.1) L 10/03/18 06:21 Hgb 11.3 g/dL (14.0-18.0) L 10/03/18 06:21 Hct 33.6 % (42-52) L 10/03/18 06:21 MCV 87.7 fL (80-100) 10/03/18 06:21 MCH 29.5 pg (25-34) 10/03/18 06:21 MCHC 33.6 g/dL (32-36) 10/03/18 06:21 RDW Std Deviation 42.4 fL (36.4-46.3) 10/03/18 06:21 RDW Coeff of April 13.1 % (11.5-14.5) 10/03/18 06:21 Plt Count 153 K/uL (130-400) 10/03/18 06:21 MPV 10.8 fL (7.4-10.4) H 10/03/18 06:21 Immature Gran % (Auto) 0.2 % 10/03/18 06:21 Neut % (Auto) 45.6 % 10/03/18 06:21 Lymph % (Auto) 37.9 % 10/03/18 06:21 Elk % (Auto) 8.7 % 10/03/18 06:21 Eos % (Auto) 7.1 % 10/03/18 06:21 Baso % (Auto) 0.5 % 10/03/18 06:21 Immature Gran # (Auto) 0.01 K/uL (0.00-0.02) 10/03/18 06:21 Neut # (Auto) 2.00 K/uL (1.4-6.5) 10/03/18 06:21 Lymph # (Auto) 1.66 K/uL (1.2-3.4) 10/03/18 06:21 Elk # (Auto) 0.38 K/uL (0.11-0.59) 10/03/18 06:21 Eos # (Auto) 0.31 K/uL (0-0.5) 10/03/18 06:21 Baso # (Auto) 0.02 K/uL (0-0.2) 10/03/18 06:21 PT 11.8 Seconds (9.0-12.0) 09/30/18 16:37 INR 1.2 (0.9-1.1) H 09/30/18 16:37 APTT 33.5 Seconds (21.0-31.0) H 09/30/18 16:37 PTT Ratio 1.2 09/30/18 16:37 VBG pH 7.38 (7.36-7.41) 09/30/18 16:37 VBG pCO2 42 mmHg (38-50) 09/30/18 16:37 VBG pO2 68 mmHg 09/30/18 16:37 VBG HCO3 24 mmol/L 09/30/18 16:37 VBG O2 Saturation 81.4 % 09/30/18 16:37 VBG Base Excess -1.0 mEq/L 09/30/18 16:37 Barometric Pressure 737.7 mm/Hg 09/30/18 16:37 Sodium 142 mmol/L (136-145) 10/02/18 06:19 Potassium 3.8 mmol/L (3.5-5.1) 10/02/18 06:19 Chloride 107 mmol/L (98-107) 10/02/18 06:19 Carbon Dioxide 28 mmol/L (21-32) 10/02/18 06:19 Anion Gap 7.0 (3-11) 10/02/18 06:19 BUN 29 mg/dl (7-18) H 10/02/18 06:19 Creatinine 1.40 mg/dl (0.6-1.4) 10/02/18 06:19 Est Cr Clr Drug Dosing 42.0 ml/min 10/02/18 06:19 Est GFR ( Amer) 52.0 10/02/18 06:19 Est GFR (Non-Af Amer) 44.9 10/02/18 06:19 BUN/Creatinine Ratio 20.8 (10-20) H 10/02/18 06:19 Glucose 80 mg/dl (70-99) 10/02/18 06:19 POC Glucose 173 (70-99) H 10/07/18 07:41 Estimat Average Glucose 212 mg/dl 10/01/18 05:25 Hemoglobin A1c 9.0 % (4.5-5.6) H 10/01/18 05:25 Lactate 1.6 mmol/L (0.4-2.0) 09/30/18 16:37 Calcium 8.6 mg/dl (8.5-10.1) 10/02/18 06:19 Magnesium 2.0 mg/dl (1.8-2.4) 09/30/18 16:37 Total Bilirubin 0.7 mg/dl (0.2-1) 09/30/18 16:37 AST 41 U/L (15-37) H 09/30/18 16:37 ALT 30 U/L (12-78) 09/30/18 16:37 Alkaline Phosphatase 70 U/L (45-117) 09/30/18 16:37 Ammonia 12.0 umol/L (11-32) 09/30/18 16:37 Troponin I < 0.015 ng/ml (0-0.045) 09/30/18 16:37 Total Protein 8.2 gm/dl (6.4-8.2) 09/30/18 16:37 Albumin 3.3 gm/dl (3.4-5.0) L 09/30/18 16:37 Globulin 4.9 gm/dl (2.5-4.0) H 09/30/18 16:37 Albumin/Globulin Ratio 0.7 (0.9-2) L 09/30/18 16:37 Triglycerides 189 mg/dl (0-150) H 10/01/18 05:25 Cholesterol 137 mg/dl (0-200) 10/01/18 05:25 LDL Cholesterol, Calc 63 mg/dl 10/01/18 05:25 VLDL Cholesterol, Calc 38 mg/dl 10/01/18 05:25 HDL Cholesterol 36 mg/dl 10/01/18 05:25 Cholesterol/HDL Ratio 4 10/01/18 05:25 TSH 1.100 uIu/ml (0.300-4.500) 09/30/18 16:37 Urine Color Yellow 09/30/18 17:27 Urine Appearance Cloudy (Clear) H 09/30/18 17:27 Urine pH 5.0 (4.5-7.5) 09/30/18 17:27 Ur Specific [place] 1.024 (1.000-1.030) 09/30/18 17:27 Urine Protein 3+ (Negative) H 09/30/18 17:27 Urine Glucose (UA) 1+ (Negative) H 09/30/18 17:27 Urine Ketones 1+ (Negative) H 09/30/18 17:27 Urine Blood 2+ (Negative) H 09/30/18 17:27 Urine Nitrite Negative (Negative) 09/30/18 17: Urine Bilirubin Negative (Negative) 09/30/18 17:27 Urine Urobilinogen Negative (Negative) 09/30/18 17:27 Ur Leukocyte Esterase Trace (Negative) H 09/30/18 17:27 Urine WBC (Auto) 10-30 /hpf (0-5) H 09/30/18 17:27 Urine RBC (Auto) 0-4 /hpf (0-4) 09/30/18 17:27 U Hyaline Cast (Auto) 5-10 /lpf (0-5) H 09/30/18 17:27 U Epithel Cells (Auto) >30 /lpf (0-5) H 09/30/18 17:27 Urine Bacteria (Auto) Negative (Negative) 09/30/18 17:27 Ur Renal Epithelial Cell Not Reportable 09/30/18 17:27 Granular Casts 5-10 /lpf (0) H 09/30/18 17:27 Urine Yeast Not Reportable 09/30/18 17:27 Influenza Type A (PCR) Pos for Influ A (Neg) A* 10/01/18 10:20 Influenza Type B (PCR) Neg for Influ B (Neg) 10/01/18 10:20 Resident Activity Tracking Resident Involvement: Resident Care Provided Care Provided: Adult Hospital Medicine
[2018-10-07] MEDS: INSULIN GLARGINE SOLOSTAR 100 UNITS/ML 3 ML PEN SC SCH (09:56)
[2018-10-07] MEDS: COUGH DROP (SUGAR FREE) LOZ 24 LOZ/1 BOX BUCCAL PRN (22:09)
[2018-10-08] MEDS: HEPARIN SOD 5,000 UNIT/0.5 ML VIAL SQ SCH ×2 (06:28→12:55)
[2018-10-08] MEDS: ASPIRIN 81 MG ECTAB PO SCH (08:12)
[2018-10-08] MEDS: CALCIUM 600MG + VIT D 400 IU TAB PO SCH (08:12)
[2018-10-08] MEDS: OMEGA-3 (PURIFIED FISH OIL) 1 GM CAP PO SCH (08:12)
[2018-10-08] MEDS: SIMVASTATIN 20 MG TAB PO SCH (08:12)
[2018-10-08] MEDS: CHOLECALCIFEROL 1,000 UNITS TAB PO SCH (08:12)
[2018-10-08] MEDS: TRIAMCINOLONE ACET 0.5% CR 15 GM TUBE EXT PRN (08:13)
[2018-10-08] MEDS: METOPROLOL SUCC 25MG EXT REL TAB PO SCH (08:13)
[2018-10-08] MEDS: THIAMINE HCL 100 MG TAB PO SCH (08:14)
[2018-10-08 08:17] VITALS: BP 114/67; TEMP 97.5; O2SAT 91
[2018-10-08] MEDS: INSULIN GLARGINE SOLOSTAR 100 UNITS/ML 3 ML PEN SC SCH (09:16)
[2018-10-08] MEDS: INSULIN ASPART 100 UNITS/ML 3 ML PEN SC SCH ×2 (09:16→12:56)
--- NOTE | 2018-10-08 10:57 | Family Medicine Progress Note ---
Date of Service October 08, 2018 Assessment & Plan (1) Influenza A: (1) Influenza A: 88M with a past medical history of hypertension, mild cognitive decline presents with acute encephalopathy. Patient has recently had viral URI symptoms. 1) Metabolic encephalopathy in the setting of influenza A infection (resolved) Patient has baseline dementia which is likely being worsened by viral illness Isolation room for influenza, initiated Tamiflu therapy, renal dosing 30 mg twice daily, end date October 06. Delirium precautionsincluding frequent orientation, opening of shades during the day, calm dark environment in the evenings c/w incentive spirometer. 2) Poorly controlled type 2 diabetes c/w glimepiride & insulin sliding scale. Patient's hemoglobin A1c was 9.0 at admission. - Defer diabetes management outpatient PCP. 3) Hypertension/CAD Continue metoprolol 25, aspirin, simvastatin, fish oil 4) CKD 3 Continue antihypertensives Continue renal dosing of medications 5) Dementia -at baseline. Has been on aricept in past. d/tahira due to side effects. DC planning for potential senior care needs 6) Contact Dermatitis - Avoiding antihistamines - Will use triamcinolone ointment, apply Q6HR to lower back DVT prophylaxis Heparin CODE STATUS Full code Disposition; agreeable to go to [facility] when a bed is available. According to [place] they note that they will take him 48 hours after his last dose of tamiflu as long as her remains afebrile. First possible day would be October 08 Subjective Patient is doing well this morning. Continues to have issues with memory, but is answering questions appropriately. Spoke at length this morning about his lifetold me about his and his family. Denies any acute symptoms at this time. He does relate that he has some itchiness back, but feels that the triamcinolone ointment is helping. He denies any fevers, chills, cough, shortness of breath, chest pain, abdominal pain, nausea, vomiting, urinary symptoms, diarrhea, Physical Exam Vital Signs (Past 24 Hours): Last Vital Signs Temp 36.4 C L 10/08/18 08:16 Pulse 80 10/08/18 08:16 Resp 18 10/08/18 08:16 BP 114/67 10/08/18 08:16 Pulse Ox 91 10/08/18 08:16 Constitutional: WD/WN, vitals as above Eyes: PERRL, conjunctivae normal, anicteric sclerae ENMT: external ear and nose normal, oropharynx normal Nose: + nasal mucous membrane abnormality (Red boggy) Neck: trachea midline, no thyromegaly Respiratory: normal respiratory effort, lungs clear to auscultation Auscultation: + wheezes (bilateral) Cardiovascular: RRR, no murmur, no edema Gastrointestinal (Abdomen): normal bowel sounds, soft, nontender, no hepatosplenomegaly Musculoskeletal: no cyanosis or clubbing, extremities motor strength 5/5 Skin: no rashes, warm and dry
--- NOTE | 2018-10-08 10:58 | Discharge Summary ---
Date of Service October 08, 2018 Admission HPI Per Admitting Provider 88 y/o M who was brought here after being found at home with AMS. Pt is uncertain why he is in the ED. He states he feels fine at present. Pt denies fever, SOB, chest pain, abd pain, n/v/c/d, LE pain or swelling. He remembers coming here in the ambulance, but he does not remember the events leading up to this. Pt's son states that his sister (pt's daughter) spoke with pt yesterday afternoon and he was fine. Another of the pt's sons spoke with him later in the evening and pt stated he was going to take a bath before bed. Son who is with pt now states that he tried to call pt around 2p and there was no answer to either home or cell phones. He called his sister who went to the pt's home and found pt lying in the bathtub in his underwear. There was no water drawn. Pt was unable to get out of the bathtub due to being too weak. He could not tell them what had happened. Son came over and they were unable to get him out of the bathtub so they called EMS. Son states that pt occasionally forgets "little things", but this is the first large chunk of missing time that they are aware of. Pt lives alone and has done so since his passed about 9 years ago. Pt is an avid [employer] basketball fan, but he missed the game on Saturday due to feeling unwell. Another sister had been in town from [place] last week and she had some sort of nonspecific "cold". They thought pt had the same and so he gave his tickets t o another daughter to stay home and rest. Pt remembers this episode. Pt denies fever, SOB, chest pain, abd pain, n/v/c/d, LE pain or swelling. Denies urinary sx. Admission Exam Per Admitting Provider Constitutional: WD/WN, vitals as above Eyes: normal visual mar by confrontation and + anicteric sclerae Neck: normal visual inspection and trachea midline Respiratory: normal respiratory effort, lungs clear to auscultation Cardiovascular: Rate/Rhythm: regular rate and regular rhythm Gastrointestinal (Abdomen): Inspection/Auscultation: abdomen not distended Percussion/Palpation: abdomen soft; abdomen nontender Musculoskeletal: Head/Neck/Chest: normocephalic and head atraumatic negative for edema, peripheral pulses intact Skin: no rashes, warm and dry Neurologic: awake; not confused Speech / Cognition: normal speech 5/5 rest room matron strength b/l 5/5 L LE strength in flexion against resistance from the hip, however R is 4/5 5/5 plantar/dorsi flexion against resistance Psychiatric: A+Ox3, euthymic affect Cognition: remote memory grossly intact and attention grossly intact Pt is alert to month and year. Becomes tearful when discussing the of his and smiles when discussing how they met and their marriage Principal Diagnosis Acute on chronic encephalopathy in the setting of influenza Discharge Exam Constitutional WD/WN, vitals as above Eyes PERRL, conjunctivae normal, anicteric sclerae ENMT external ear and nose normal, oropharynx normal Neck trachea midline, no thyromegaly Respiratory normal respiratory effort, lungs clear to auscultation Cardiovascular RRR, no murmur, no edema Gastrointestinal (Abdomen) normal bowel sounds, soft, nontender, no hepatosplenomegaly Musculoskeletal no cyanosis or clubbing, extremities motor strength 5/5 Skin normal turgor; no ulcers and no erythema small red papules on lower back Psychiatric Orientation: alert and oriented to person; + not oriented to time Discharge Data Allergies Allergy/AdvReac Type Severity Reaction Status Date / Time REDD Inhibitors Allergy Severe swelling Verified 09/30/18 19:48 of face, lips, etc. pneumococcal vaccine Allergy Mild ARM SWELLED Verified 09/30/18 19:48 losartan Allergy Unknown unknown Verified 09/30/18 19:48 Consultations 09/30/18 18:37 ED Decision to Admit Stat 09/30/18 21:55 Consult Case Management - Discharge Planning Routine Consult Case Management - Discharge Planning Routine Ordered Studies 09/30/18 16:14 CT head/brain wo con Stat [place], [place] [phone] CT Scan Report Patient: YULY BAIRES VAdmit Date: 09/30/18 MR#: [id number]: [address] Acct ID:[id number]: Date: 1930[facility] Zip: [place] [address] Age: 88Location: ED Sex: M Room/Bed: Att Phy: Diagnosis: CONFUSION Sarah Phy: Pro, Eliezer W., MDService Date: 09/30/18 [facility] Phy: Interpreting Phy: Timoteo Burton MD Admit Phy: Ordering Phy: Stefano Woods M.D. cc: ~ HEAD CT NONCONTRAST CT DOSE: 537.48 mGy.cm HISTORY: confusion TECHNIQUE: Multiaxial CT images of the head were performed without the use of intravenous contrast. Automated exposure control was utilized for this study. A dose lowering technique was utilized adhering to the principles of ALARA. Comparison: Head CT 06/06/2014. Findings: Moderate mucosal thickening within the maxillary sinuses and ethmoid air cells. The calvarium and skull base are intact. There is no mass, hematoma, midline shift, acute infarct. White matter hypodensity is nonspecific but suggestive of microvascular ischemic change. The ventricles and sulci demonstrate mild age-related involutional changes. 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 Impression: No significant change compared to the prior study. No acute intracranial abnormality. Electronically signed by: Timoteo Burton M.D. 09/30/2018 5:26 PM Dictated: 09/30/18 1722 Transcribed: 09/30/18 1722 [place], [place] [phone] XRay Report Patient: YULY BAIRES Date: 09/30/18 MR#: [id number]: [address] Acct ID:[id number]: Date: 1930[facility] Zip: [place] [address] Age: 88Location: ED Sex: M Room/Bed: Att Phy: Diagnosis: CONFUSION Sarah Phy: Eliezer Knox, MDService Date: 09/30/18 [facility] Phy: Interpreting Phy: Timoteo Burton MD Admit Phy: Ordering Phy: Stefano Woods M.D. cc: ~ XR chest 1V portable HISTORY: weakness COMPARISON: None. FINDINGS: The heart is mildly enlarged. Calcified left hilar lymph nodes. A few linear densities the left lung base consistent with subsegmental atelectasis or scarring. The lungs are otherwise clear. No pleural effusions. No pneumothorax. IMPRESSION: Mild cardiomegaly. Otherwise, no acute process within the chest. Electronically signed by: Timoteo Burton M.D. 09/30/2018 4:31 PM Hospital Course (1) Influenza A: 88M with a past medical history of hypertension, mild cognitive decline presents with acute encephalopathy. Patient has recently had viral URI symptoms. 1) Metabolic encephalopathy in the setting of influenza A infection (resolved) Was admitted after family found him in his bathtub for unknown amount of time patient had previously been having viral symptoms. Tested positive for influenza at [facility].Patient has baseline dementia which is likely being worsened by viral illness Patient completed a course Tamiflu 30 mg twice daily for 5 days Was evaluated by physical therapy who [facility] Previously on Aricept, but was discontinued after having abdominal side effects, including diarrhea. 2) Poorly controlled type 2 diabetes c/w glimepiride & insulin sliding scale. Patient's hemoglobin A1c was 9.0 at admission. - Defer diabetes management outpatient PCP 3) Hypertension/CAD Continue metoprolol 25, aspirin 81, simvastatin 20, fish oil 4) CKD 3 Continue antihypertensives Continue renal dosing of medications 5) Dementia -at baseline. Has been on aricept in past. d/tahira due to side effects. Continue PT/OT at senior care facility 6) Contact Dermatitis--on lower back, improving - Avoiding antihistamines - Continue triamcinolone ointment, apply Q6HR to lower back Total Time Total Time Spent Total Time Spent (In Minutes): greater than 30 minutes Total Time Includes: Examination of the Patient, Discharge Planning, Medication Reconciliation and Communication With Other Providers Discharge Plan Discharge Items Patient Disposition: Transfer Halfway Fac Reason For Visit: AMS Discharge Diagnosis: Acute on chronic encephalopathy in the setting of influenza Condition: Good Discharge Goals: Improve function Activity: Resume your previous activity Non-emergency contact: Primary Care Provider Call non-emergency contact if: you have any medication questions Follow-up/Referrals: Eliezer Knox MD [Primary Care Provider] - Diet: Heart Healthy Addtl Provider Instructions: 88M with a past medical history of hypertension, mild cognitive decline presents with acute encephalopathy. Patient has recently had viral URI symptoms. 1) Metabolic encephalopathy in the setting of influenza A infection (resolved) Was admitted after family found him in his bathtub for unknown amount of timepatient had previously been having viral symptoms. Tested positive for influenza at [facility].Patient has baseline dementia which is likely being worsened by viral illness Patient completed a course Tamiflu 30 mg twice daily for 5 days Was evaluated by physical therapy who recommended senior care facilityplan to transfer to [facility] Previously on Aricept, but was discontinued after having abdominal side effects, including diarrhea. 2) Poorly controlled type 2 diabetes c/w glimepiride & insulin sliding scale. Patient's hemoglobin A1c was 9.0 at admission. - Defer diabetes management outpatient PCP 3) Hypertension/CAD Continue metoprolol 25, aspirin 81, simvastatin 20, fish oil 4) CKD 3 Continue antihypertensives Continue renal dosing of medications 5) Dementia -at baseline. Has been on aricept in past. d/tahira due to side effects. Continue PT[facility]OT at senior [facility] 6) Contact Dermatitis - Avoiding antihistamines - Will use triamcinolone ointment, apply Q6HR to lower back Prescriptions: Continued thiamine HCl (vitamin B1) [Vitamin B-1] 100 mg Tablet 100 mg PO DAILY RF: 0 aspirin [Aspir-81] 81 mg Tablet,Delayed Release (Dr/Ec) 81 mg PO DAILY RF: 0 glimepiride 2 mg tablet 4 mg PO BID RF: 0 simvastatin 20 mg tablet 20 mg PO DAILY RF: 0 metoprolol succinate 25 mg tablet extended release 24 hr 25 mg PO DAILY RF: 0 cholecalciferol (vitamin D3) [Vitamin D3] 1,000 unit Capsule 1,000 unit PO DAILY RF: 0 Calcium 600 + D(3) 600 mg calcium- 200 unit Capsule 1 cap PO DAILY RF: 0 alpha lipoic acid 300 mg Capsule 300 mg PO DAILY RF: 0 omega 5-fct-cgx-fish oil [Fish Oil] 1,000 mg (120 mg-180 mg) Capsule PO BID RF: 0 vitamin B complex 100 2-herbs 100 mg Tablet 1 tab PO DAILY RF: 0 Stand-Alone Forms: My [facility] Natanael Ulien Kra[place]/Other Patient Handouts: Hyperglycemia, Hypoglycemia, Blood Sugar Check, Diabetes Meal Planning Discharge Orders: Discharge Order (Routine); Ordered 10/08/18 Ordered By: Antonino Mensah Skilled Items Patient informed of condition?: Yes DNR: No Discharge Level of Care: Skilled Communicable Disease: No Discharge Prognosis: Improving Admission Data Admit Date/Time: 09/30/18 19:59 Attending Provider: Kwame Davidson Admit Provider: Ruchi Cevallos Primary Care Provider: Eliezer Knox Other Providers: Ruchi Cevallos ; Geena Kahn Service: Medical Other Interventions: Discharge Summary Assessment (RN) Last Done: 10/08/18 13:15 Pending Studies at Discharge: No DC Date/Time DO NOT enter until pt leaves facility: 10/08/18 14:57 Supervising Physician Co-Signing Physician Notes I personally examined the patient and verified all lea points of history and exam, discussed case, and agree with decision making with Dr Mensah. Feeling okay, son wants me to emphasize to the patient why he is going to [facility], which I do. Son seems to appreciate this. Vitals noted, in general he is in no distress. HEENT normal cephalic atraumatic mucous membranes are moist. Breathing unlabored no accessory muscle use. No pallor or icterus. Influenzastable, finished Tamiflu, to SNF for PT/OT related to deconditioning and weakness. Skin rashnonspecific, possibly contact related to sheets, steroid cream as needed Concern on sleep apneasleep study as an outpatient DVT prophheparin subcu utilized during his hospital stay Otherwise as above stable for transfer to SNF Resident Activity Tracking Resident Involvement: Resident Care Provided Care Provided: Adult Hospital Medicine
[2018-10-08 13:18] VITALS: PULSE 109
== END 2018-10-08 14:57 | DRG 193 ==
LOC: ED 16:03 → 2S 19:59 → SUATTDRO 19:59 → 2S 20:54 → 4E 10-01 17:13